=== PATIENT | female | born 1990 | race Caucasian/White ===

== ENCOUNTER → 2018-01-22 13:54 | Outpatient (CLI) | payer MEDICAID, SELFPAY ==
[2018-01-22 16:20] LABS: Pregnancy, Serum, hCG Quali. NEGATIVE Negative (0-9 Nonpreg)
== END ==
PROVIDERS: Visit Provider Obstetrics & Gynecology
DX: N91.2 Amenorrhea, unspecified (principal)
CPT/HCPCS: 36415; 84144; 84703

== ENCOUNTER → 2019-05-28 13:45 | Outpatient (CLI) | payer MEDICAID, SELFPAY ==
[2016-11-07 13:54] VITALS: BMI 21.2
[2019-05-28 16:20] LABS: hCG Titer Quant., Serum < 1 mIU/mL (1-3)
[2019-05-28 16:21] LABS: Progesterone Level 0.63 ng/mL (See Comment)
== END ==
PROVIDERS: Visit Provider Obstetrics & Gynecology
DX: Z30.014 Encounter for initial prescription of intrauterine contraceptive device (principal)
CPT/HCPCS: 36415; 84144; 84702

== ENCOUNTER → 2020-10-12 | Outpatient (CLI) | payer MEDICAID, SELFPAY ==
[2016-11-07 13:54] VITALS: BMI 21.2
[2020-10-15 20:08] LABS: Chlamydia By Nucleic Acid AMP Negative (Negative)
[2020-10-16 01:29] LABS: Gonococcus By Nucleic Acid AMP Negative (Negative)
[2020-10-16 20:07] LABS: HPV Genotype 16, Aptima Negative (Negative)
[2020-10-16 21:09] LABS: HPV APTIMA, High Risk Positive (Negative); HPV Genotype 18,45 Aptima Negative (Negative)
== END | disposition home or self-care (01) ==
LOC: LABSPEC 15:54
PROVIDERS: Visit Provider Student in an Organized Health Care Education/Training Program
DX: Z34.81 Encounter for supervision of other normal pregnancy, first trimester (principal); Z12.4 Encounter for screening for malignant neoplasm of cervix; Z11.3 Encounter for screening for infections with a predominantly sexual mode of transmission
CPT/HCPCS: 87491; 87591; 87624; 88175; G0145

== ENCOUNTER → 2020-10-20 | Outpatient (CLI) | payer MEDICAID, SELFPAY ==
[2016-11-07 13:54] VITALS: BMI 21.2
[2020-10-20 17:10] LABS: Absolute Lymphocyte Count 2.11 X10^3/uL (0.83-4.51); Absolute Neutrophil Count 8.9 X10^3/uL (2.0-7.7); Basophil# 0.03 X10^3/uL; Basophil% 0.3 % (0-1); Eosinophil# 0.06 X10^3/uL; Eosinophils% 0.5 % (0-5); Hematocrit 36.9 % (37-47); Hemoglobin 12.8 g/dL (12.0-15.0); Lymphocyte # 2.11 X10^3/ul (4.0); Lymphocyte % 17.7 % (19-41); Mean Corp Hgb Conc 34.7 g/dL (32-36); Mean Corpuscular Hgb 31.3 pg (27.0-32.0); Mean Corpuscular Volume 90.2 fL (81-99); Mean Platelet Vol. 10.6 fl (6.2-12.0); Monocyte# 0.78 X10^3/uL; Monocyte% 6.5 % (0-10); NRBC Flagged by Analyzer 0 % (0-5); Neutrophil # 8.92 X10^3/uL (2.7-7.7); Neutrophil % 74.6 % (47-70); Platelet Count 282 K/mm3 (150-450); RBC Distribution Width CV 12.3 % (11.6-14.6); RBC Distribution Width SD 40.3 fl (35.1-43.9); Red Blood Count 4.09 M/mm3 (4.2-5.4)
[2020-10-21 09:45] LABS: HIV - WCH Non-Reactive (Nonreactive); Hepatitis B Surface Antigen Non-Reactive (Nonreactive); Hepatitis C Antibody Non-Reactive (Nonreactive); Rubella IgG Reactive (Nonreactive)
[2020-10-22 01:10] LABS: Prenatal RPR NONREACTIVE (NONREACTIVE)
== END | disposition home or self-care (01) ==
PROVIDERS: Visit Provider Student in an Organized Health Care Education/Training Program
DX: Z34.81 Encounter for supervision of other normal pregnancy, first trimester (principal)
CPT/HCPCS: 36415; 85025; 86703; 86762; 86803; 87086; 87340

== ENCOUNTER → 2020-11-17 11:45 | Outpatient (CLI) | payer MEDICAID, SELFPAY ==
[2016-11-07 13:54] VITALS: BMI 21.2
[2020-11-23 15:49] LABS: CF, Screen Comment: (.)
== END ==
PROVIDERS: Visit Provider Student in an Organized Health Care Education/Training Program
DX: Z34.00 Encounter for supervision of normal first pregnancy, unspecified trimester (principal)
CPT/HCPCS: 36415; 81220

== ENCOUNTER → 2020-12-16 | Outpatient (CLI) | payer MEDICAID, SELFPAY | END | disposition home or self-care (01) | LOC: LABSPEC 15:24 | PROVIDERS: Referring Provider Student in an Organized Health Care Education/Training Program; Visit Provider Student in an Organized Health Care Education/Training Program | DX: U07.1 COVID-19 (principal) | CPT/HCPCS: 87635; C9803; U0002 ==

== ENCOUNTER → 2021-02-08 13:08 | Outpatient (CLI) | payer MEDICAID, SELFPAY ==
[2016-11-07 13:54] VITALS: BMI 21.2
[2021-02-08 13:38] LABS: Hematocrit 33.4 % (37-47); Hemoglobin 11.7 g/dL (12.0-15.0); Mean Corpuscular Hgb 32.1 pg (27.0-32.0); Mean Corpuscular Volume 91.8 fL (81-99); Platelet Count 256 K/mm3 (150-450); RBC Distribution Width CV 13.1 % (11.6-14.6); RBC Distribution Width SD 43.5 fl (35.1-43.9); Red Blood Count 3.64 M/mm3 (4.2-5.4); White Blood Count 11.5 K/mm3 (4.4-11.0)
[2021-02-08 13:47] LABS: Glucose Challenge Gest 1H 50g 115 mg/dL (70-140)
== END ==
PROVIDERS: Visit Provider Student in an Organized Health Care Education/Training Program
DX: Z34.82 Encounter for supervision of other normal pregnancy, second trimester (principal)
CPT/HCPCS: 36415; 82950; 85027

== ENCOUNTER 2021-04-30 13:40 | Outpatient (CLI) | payer MEDICAID, SELFPAY ==
[2021-04-30] VITALS (40 sets, daily range): BP systolic 104–130; BP diastolic 68–70; PULSE 79–163; TEMP 36.6–36.7; O2SAT 87–100; BMI 21.5
[2021-04-30] MEDS: Lactated Ringers 1,000 ML 999 ML IV (16:10)
[2021-04-30] MEDS: Lactated Ringers 1,000 ML 120 ML IV (17:15)
[2021-04-30 17:20] LABS: Absolute Lymphocyte Count 1.71 X10^3/uL (0.83-4.51); Basophil# 0.03 X10^3/uL; Basophil% 0.2 % (0-1); Eosinophil# 0.04 X10^3/uL; Eosinophils% 0.3 % (0-5); Hematocrit 35.1 % (37-47); Hemoglobin 12.1 g/dL (12.0-15.0); Lymphocyte # 1.71 X10^3/ul (0.83-4.51); Lymphocyte % 12.5 % (19-41); Mean Corp Hgb Conc 34.5 g/dL (32-36); Mean Corpuscular Hgb 30.7 pg (27.0-32.0); Mean Corpuscular Volume 89.1 fL (81-99); Mean Platelet Vol. 10.8 fl (6.2-12.0); Monocyte# 0.82 X10^3/uL; NRBC Flagged by Analyzer 0 % (0-5); Neutrophil % 80.3 % (47-70); Platelet Count 228 K/mm3 (150-450); RBC Distribution Width CV 12.6 % (11.6-14.6); Red Blood Count 3.94 M/mm3 (4.2-5.4); White Blood Count 13.7 K/mm3 (4.4-11.0)
[2021-04-30 17:36] LABS: ALB/GLOB Ratio 0.6 RATIO (0.9-2.4); AST(SGOT) 16 U/L (15-37); Alanine Aminotransfer ALT/SGPT 18 U/L (13-56); Albumin, Serum 2.8 g/dL (3.2-5.0); Alkaline Phosphatase 105 U/L (45-117); Anion Gap 8 (5-15); BUN 6 mg/dL (7-18); BUN/Creat Ratio 13.9 RATIO (10-20); Calcium,Total 8.6 mg/dL (8.5-10.1); Chloride 106 mmol/L (98-107); Creatinine, Serum 0.43 mg/dL (0.55-1.02); EST Glomerular Filtration Rate 182 mL/min (>60); Est Glom Filt Rate - Afr Amer 220 mL/min (>60); Globulin 4.4 g/dL (2.2-4.2); Glucose 73 mg/dL (74-106); Potassium 3.6 mmol/L (3.5-5.1); Protein, Total 7.2 g/dL (6.4-8.2); Sodium Level 137 mmol/L (136-145)
[2021-04-30 17:46] LABS: Amphetamine Urine VISTA NEGATIVE (<1000 ng/mL); Barbiturate Urine VISTA NEGATIVE (< 200 ng/mL); Benzodiazepine Urine VISTA NEGATIVE (< 200 ng/mL); Cocaine Urine VISTA NEGATIVE (< 300 ng/mL); Ecstacy Urine VISTA NEGATIVE (< 500 ng/mL); Methadone Urine VISTA NEGATIVE (< 300 ng/mL); PCP Urine VISTA NEGATIVE (< 25 ng/mL); THC Urine VISTA NEGATIVE (< 50 ng/mL); Vista UDS pH Range 6
--- NOTE | 2021-04-30 17:50 | PCM.HP.BLA ---
History and Physical Date of Admission: 04/30/21 Chief complaint: arrhythmia History present illness: 30-year-old G4, P3 at 35 weeks and 4 days with ALBA: 05/31/2021 by LMP arrived to office with cramping. Placed on NST found to have arrhythmia. BPP performed. Arrived to labor and delivery for extended monitoring found again to have what appears to be movement arrhythmia. Patient otherwise asymptomatic, cramping now improved. Denies headache, visual changes, chest pain, shortness of breath, right upper quadrant pain. Obstetric history: G1: 37-week primary section for oligohydramnios and nonreassuring heart tones male 03/04/2011 G2: 36-week male 10/18/2015 G3: 33-week female 11/24/2016 G4: Current Past medical history: None Medications: vitamin Past surgical history: section, hymenectomy Allergies: No known drug allergies Social history: 1 pack/day smoker, no alcohol or drug use Family history: Denies history DVT or PE Review of systems: Besides above pertinent positives a full review of systems was performed and found to be negative Physical exam: Vitals: Pulse 95 temp 98 General: Normal-appearing no acute distress HEENT: Normocephalic atraumatic no cervical adenopathy Cardiac/respiratory: No use of accessory muscles, nonlabored breathing Abdomen: Soft, nontender, gravid Pelvic exam: Cervical exam 1/50/-3 Extremities: No peripheral edema normal peripheral pulses Psych: Normal affect normal demeanor nonpressured speech Bedside ultrasound: During audible arrhythmia: External monitor ultrasound shows atrial with arrhythmia and ventricle with persistent baseline, no signs of bradycardia Assessment plan: 30-year-old at 35 weeks and 4 days with arrhythmia. Bedside ultrasound performed and appears to show signs of arrhythmia PACs but this cannot be fully confirmed with this evaluation. Discussed case with Dr. Ester Nickerson [facility], to give Celestone now and transport for echo at [facility]. Overall heart rate tracing with steady baseline which shows no true deceleration but during arrhythmia monitor picks up abnormal reading, this is just greater than 50% of the time. Overall heart tones with moderate variability and no true decelerations, positive accelerations. Overall this is reassuring. Per discussion with Dr. Norman we will continue to monitor until transport, echo likely to be on Monday. Transport team called, will transfer now
[2021-04-30] MEDS: Betamethasone/Betamethasone 30 MG/5 ML Vial 12 MG IM (17:57)
== END 2021-04-30 19:30 | disposition short-term general hospital (02) ==
LOC: WPOUT 14:49 → WP 14:50
PROVIDERS: Obstetrics & Gynecology; Visit Provider Obstetrics & Gynecology
DX: O36.8330 Maternal care for abnormalities of the fetal heart rate or rhythm, third trimester, not applicable or unspecified (principal); O34.219 Maternal care for unspecified type scar from previous cesarean delivery; O99.333 Smoking (tobacco) complicating pregnancy, third trimester; F17.210 Nicotine dependence, cigarettes, uncomplicated; Z3A.35 35 weeks gestation of pregnancy
CPT/HCPCS: 96360; 96361 ×2; 96372; 59025; 59050; 80053; 80307; 85025; 86850; 86900; 86901; 87081; 96374; 99218; J7120; G0378; J0702

== ENCOUNTER → 2022-02-10 | Outpatient (CLI) | payer MEDICAID, SELFPAY ==
[2022-02-10 11:57] LABS: Absolute Lymphocyte Count 1.87 X10^3/uL (0.83-4.51); Absolute Neutrophil Count 6.2 X10^3/uL (2.0-7.7); Basophil# 0.02 X10^3/uL; Basophil% 0.2 % (0-1); Eosinophil# 0.05 X10^3/uL; Eosinophils% 0.6 % (0-5); Hematocrit 36.9 % (37-47); Hemoglobin 12.6 g/dL (12.0-15.0); Lymphocyte # 1.87 X10^3/ul (0.83-4.51); Lymphocyte % 21.3 % (19-41); Mean Corp Hgb Conc 34.1 g/dL (32-36); Mean Corpuscular Hgb 30.7 pg (27.0-32.0); Mean Corpuscular Volume 89.8 fL (81-99); Mean Platelet Vol. 10.4 fl (6.2-12.0); Monocyte# 0.61 X10^3/uL; NRBC Flagged by Analyzer 0 % (0-5); Neutrophil # 6.17 X10^3/uL (2.7-7.7); Neutrophil % 70.4 % (47-70); Platelet Count 259 K/mm3 (150-450); RBC Distribution Width CV 12.3 % (11.6-14.6); RBC Distribution Width SD 40.2 fl (35.1-43.9); Red Blood Count 4.11 M/mm3 (4.2-5.4); White Blood Count 8.8 K/mm3 (4.4-11.0)
[2022-02-10 12:48] LABS: HIV - WCH Non-Reactive (Nonreactive); Hepatitis B Surface Antigen Non-Reactive (Nonreactive); Hepatitis C Antibody Non-Reactive (Nonreactive); Rubella IgG Reactive (Nonreactive); Syphilis Antibodies Non-reactive
[2022-02-14 11:26] LABS: Chlamydia By Nucleic Acid AMP Negative (Negative)
[2022-02-14 20:07] LABS: Gonococcus By Nucleic Acid AMP Negative (Negative)
[2022-02-16 10:17] LABS: HPV APTIMA, High Risk Positive (Negative)
== END | disposition home or self-care (01) ==
PROVIDERS: Visit Provider Obstetrics & Gynecology
DX: Z34.81 Encounter for supervision of other normal pregnancy, first trimester (principal); Z12.4 Encounter for screening for malignant neoplasm of cervix; Z11.3 Encounter for screening for infections with a predominantly sexual mode of transmission
CPT/HCPCS: 36415; 85025; 86703; 86762; 86780; 86803; 87086; 87088; 87340; 87491; 87591; 87624; 88175; G0145

== ENCOUNTER → 2022-03-21 | Outpatient (CLI) | payer MEDICAID, SELFPAY | END | disposition home or self-care (01) | PROVIDERS: Visit Provider Obstetrics & Gynecology | DX: Z36.89 Encounter for other specified antenatal screening (principal) ==

== ENCOUNTER → 2022-03-22 | Outpatient (CLI) | payer MEDICAID, SELFPAY ==
--- NOTE | 2022-03-22 | IMM_PTH ---
PATIENT: JYOTHI ALVES LOC: [facility] U#:[id number] AGE/SX: 31/F ROOM: RE03/22/[address]: Dr. Ajay Carty MD : 1990 BED: DIS: 03/22/2022 SPEC #: [id number] RECD: 03/23/22 12:09 STATUS: NIKKY REQ #: [id number] SOCORRO: 03/22/22 00:[address]: Ajay Carty DEPT: IMMUNOHISTOCHEMISTRY RECD BY: Dilcia Mccurdy ENTERED: 03/23/22 12:10 SP TYPE: IMMUNO OTHR DR: No Primary Care Phys Tissues: Uterine cervix, NOS Procedures: p16 (initial) KI-67 (add) PHYSICIAN & INSTITUTION [place] [id number] SPECIMEN INFORMATION: Tissue Source: Cervix at 6 & 12 o?clock Clinical Info: ASCUS HPV positive Specimen Number: [id number] CPT code: 13307, 27012 METHODOLOGY: Deparaffinized sections of prefer/formalin-fixed tissue or PAP/DQ stained slides are incubated with monoclonal/polyclonal antibodies/oligonucleotide probes. Localization is made via biotin free immunoperoxidase method. Appropriate controls are performed and reacted as expected. Results on target cell population are indicated in the following table: RESULTS: ANTIBODY / CLONE RESULT P16 (E6H4) positive, focal, patchy Ki-67 (30-9) negative These tests were developed and their performance characteristics determined by [facility]. They may not have been cleared or approved by the U.S. Food and Drug Administration. The FDA has determined that such clearance or approval is not necessary. The above immunohistochemical/dualISH markers are ordered and reviewed by the Pathologist. INTERPRETATION: Cervix at 6 & 12 o?clock, biopsy: Focal HPV change present. AM:roya 03/24/2022
--- NOTE | 2022-03-22 11:15 | CER_PTH ---
PATIENT: JYOTHI ALVES LOC: [facility] U#:[id number] AGE/SX: 31/F ROOM: RE03/22/[address]: Dr. Ajay Carty MD : 1990 BED: DIS: 03/22/2022 SPEC #: [id number] RECD: 03/22/22 13:15 STATUS: NIKKY REFranck #: [id number] SOCORRO: 03/22/22 11:[address]: Ajay Carty DEPT: SURGICAL PATHOLOGY RECD BY: Yenny Cortes ENTERED: 03/22/22 13:16 SP TYPE: CERV OT DR: No Primary Care Phys Tissues: Uterine cervix, NOS Procedures: Surgery Specimen Level IV HEADER OPERATION: Colposcopy PRE-OP DIAGNOSIS: ASCUS HPV positive TISSUE SUBMITTED: Cervical biopsy 6 & 12 o?clock MICROSCOPIC DIAGNOSIS Cervix at 6 and 12 o?clock, biopsy: Focal HPV change present. See comment. AM:roya 03/23/2022 COMMENT Results from immunohistochemistry ([id number]) for surrogate HPV marker (p16) will be reported separately. MICROSCOPIC DESCRIPTION Slides are reviewed. GROSS DESCRIPTION Received is one container labeled with the patient's name and not further designated. The specimen consists of two irregular fragments of light valverde soft tissue that in aggregate measure 1 x 0.5 x 0.1 cm. The specimen is totally submitted in one cassette. / AM:roya 03/22/2022 TC:2 CPT: 82261
== END | disposition home or self-care (01) ==
LOC: LABSPEC 11:52
PROVIDERS: Visit Provider Obstetrics & Gynecology
DX: R87.610 Atypical squamous cells of undetermined significance on cytologic smear of cervix (ASC-US) (principal); R87.810 Cervical high risk human papillomavirus (HPV) DNA test positive
CPT/HCPCS: 88305; 88341; 88342

== ENCOUNTER → 2022-07-13 | Outpatient (CLI) | payer MEDICAID, SELFPAY ==
[2022-07-13 11:28] LABS: Absolute Lymphocyte Count 1.68 X10^3/uL (0.83-4.51); Absolute Neutrophil Count 8.4 X10^3/uL (2.0-7.7); Basophil# 0.03 X10^3/uL; Basophil% 0.3 % (0-1); Eosinophil# 0.06 X10^3/uL; Eosinophils% 0.6 % (0-5); Hemoglobin 11.7 g/dL (12.0-15.0); Lymphocyte # 1.68 X10^3/ul (0.83-4.51); Lymphocyte % 15.8 % (19-41); Mean Corp Hgb Conc 35.5 g/dL (32-36); Mean Corpuscular Hgb 31.5 pg (27.0-32.0); Mean Corpuscular Volume 88.7 fL (81-99); Mean Platelet Vol. 9.6 fl (6.2-12.0); Monocyte# 0.41 X10^3/uL; Monocyte% 3.9 % (0-10); NRBC Flagged by Analyzer 0 % (0-5); Neutrophil # 8.38 X10^3/uL (2.7-7.7); Neutrophil % 78.8 % (47-70); Platelet Count 273 K/mm3 (150-450); RBC Distribution Width CV 12.7 % (11.6-14.6); RBC Distribution Width SD 41.3 fl (35.1-43.9); Red Blood Count 3.72 M/mm3 (4.2-5.4); White Blood Count 10.6 K/mm3 (4.4-11.0)
[2022-07-13 11:48] LABS: Glucose Challenge Gest 1H 50g 138 mg/dL (70-140)
== END | disposition home or self-care (01) ==
LOC: LABSPEC 11:08
PROVIDERS: Visit Provider Obstetrics & Gynecology
DX: Z34.83 Encounter for supervision of other normal pregnancy, third trimester (principal)
CPT/HCPCS: 36415; 82950; 85025

== ENCOUNTER 2022-07-29 07:45 | Outpatient (CLI) | payer MEDICAID, SELFPAY ==
[2022-07-29 08:19] VITALS: BMI 22.1
[2022-07-29 08:24] VITALS: BP 92/54; PULSE 90; TEMP 36.3; O2SAT 98
[2022-07-29 08:47] LABS: Color, Urine Yellow (Yellow); Glucose, Dipstick 250 mg/dl (Normal); Ketone-Dipstick 50 mg/dl (Negative); Leukocyte Esterase-Dipstick 100 /ul (Negative); Nitrite-Dipstick Positive (Negative); Occult Blood-Urine 10 /ul (Negative); Protein-Dipstick 30 mg/dl (Negative); Urine Clarity Sl. Cloudy (Clear); Urine Urobilinogen 1 mg/dl (Normal)
[2022-07-29 08:48] LABS: Urine Bilirubin Dipstick 1 mg/dL (Negative)
[2022-07-29] MEDS: Ringers, Lactated 1,000 ML IV.SOLN. 1000 ML IV (09:01)
--- NOTE | 2022-07-29 09:02 | OB.TRI.NOTE ---
HPI - General General Date of Admission: 07/29/22 HPI Narrative JYOTHI ALVES, is a 31 F who presents with back pain PFSH PFSH Home Medications Fa 1 tablet OTHER DAILY 04/30/21 [History Last Taken Unknown] Allergy/AdvReac Type Severity Reaction Status Date / Time No Known Allergies Allergy Verified 04/30/21 16:11 Social History Smoking Status: Former smoker History Elective abortions Hx Para 1 Spontaneous abortions Hx # Term Pregnancies Ectopic pregnancies Hx # Pregnancies Multiple births # of living children Physical Exam Const alert, oriented x3, no apparent distress, average body habitus, no limitations, healthy appearing and well nourished HEENT moist oral mucous membranes Eyes PERRL Neck full ROM Resp normal respiratory effort, no retractions and no use of accessory muscles GI GI Narrative: Soft, nontender, gravid Narrative: Cervical exam: 260/-3 Back/Spine no CVA tenderness Extremity normal to inspection, full ROM and no clubbing, cyanosis or edema Neuro moves all extremities and no focal motor deficits Psych mental status grossly normal, affect normal, speech normal and activity/motor behavior normal NST FHR Rate Baby A Baseline: 140 Variability:: Moderate Accelerations:: 15 x 15 Decelerations:: None NST Reactive:: Yes Uterine Activity:: Every 5 to 10 minutes Assessment & Plan (1) : PLAN: Patient seen and examined. Back pain that started last night, persistent. Denies fevers, chills. Negative CVA tenderness. Vital signs stable afebrile. Urine positive for urinary tract infection, no signs of pyelonephritis. For 1 g Rocephin IV. 1 L LR bolus. Will send Rx for Macrobid for home-going. Cervix with no signs of labor
[2022-07-29] MEDS: Ceftriaxone 1 GM/50 ML BAG IV (09:39)
[2022-07-29] MEDS: 0.9% Saline Lock 10 ML Syringe IV (09:40)
== END 2022-07-29 11:45 | disposition home or self-care (01) ==
LOC: WPOUT 08:14 → WP 08:15
PROVIDERS: Referring Provider Obstetrics & Gynecology; Visit Provider Obstetrics & Gynecology
DX: O23.40 Unspecified infection of urinary tract in pregnancy, unspecified trimester (principal); Z87.891 Personal history of nicotine dependence
CPT/HCPCS: 96365; 59025; 81002; 87086; 87088; J7120; A4216

== ENCOUNTER → 2022-08-24 | Outpatient (CLI) | payer MEDICAID, SELFPAY | END | disposition home or self-care (01) | LOC: LABSPEC 11:56 | PROVIDERS: Visit Provider Obstetrics & Gynecology | DX: R35.0 Frequency of micturition (principal) | CPT/HCPCS: 87086; 87088; 87186 ==

== ENCOUNTER → 2022-09-07 | Outpatient (CLI) | payer MEDICAID, SELFPAY ==
[2022-09-07 11:25] LABS: Hematocrit 32.2 % (37-47); Hemoglobin 10.5 g/dL (12.0-15.0); Mean Corp Hgb Conc 32.6 g/dL (32-36); Mean Corpuscular Hgb 28.8 pg (27.0-32.0); Mean Corpuscular Volume 88.2 fL (81-99); Mean Platelet Vol. 9.5 fl (6.2-12.0); Platelet Count 253 K/mm3 (150-450); RBC Distribution Width CV 13.6 % (11.6-14.6); Red Blood Count 3.65 M/mm3 (4.2-5.4); White Blood Count 9.5 K/mm3 (4.4-11.0)
[2022-09-07 12:15] LABS: Syphilis Antibodies Non-reactive
== END | disposition home or self-care (01) ==
LOC: WOBLAB 11:04
PROVIDERS: Visit Provider Obstetrics & Gynecology
DX: Z34.83 Encounter for supervision of other normal pregnancy, third trimester (principal); Z36.85 Encounter for antenatal screening for Streptococcus B
CPT/HCPCS: 36415; 87081; 85027; 86780

== ENCOUNTER 2022-09-10 06:54 | Inpatient (IN) | payer MEDICAID, SELFPAY ==
[2022-09-10] VITALS (39 sets, daily range): BP systolic 96–176; BP diastolic 56–103; PULSE 66–100; RESP 16–17; TEMP 36.4–37.2; O2SAT 92–100; BMI 20.6
[2022-09-10] MEDS: Lactated Ringers 1,000 ML 50 ML IV (07:00)
[2022-09-10] MEDS: LACTATED RINGERS 500 ML 999 ML IV (07:01)
--- NOTE | 2022-09-10 07:14 | PCM.HP.BLA ---
History and Physical Date of Admission: 09/10/22 Chief complaint: Contractions History present illness: 31-year-old G5, P4 at 36 weeks and 6 days with ALBA 10/02/2022 arrives with contractions. Denies headache, visual changes, chest pain, shortness of breath, nausea vomit, right upper quadrant pain. Patient states good movement. complicated by history of section Obstetric history: G1: 39-week primary transverse section male 6 pounds 6 ounces G2: 35-week male 5 pounds 6 ounces G3: 35-week female 4 pounds 10 ounces G4: 35-week female 6 pounds G5: Current Past medical history: None Medications: vitamin Allergies: No known drug allergies Past surgical history: section Social history: Former smoker, denies alcohol or drug use Family history: Denies history DVT or PE Review of systems: Besides above pertinent positives a full review of systems was performed and found to be negative Physical exam: Vitals: Pulse 78 SPO2 98% on room air General: Uncomfortable with contractions HEENT: Normocephalic/atraumatic no cervical lymphadenopathy Cardiac/respiratory: No use of accessory muscles, nonlabored breathing Abdomen: Soft, nontender, gravid Extremities: No peripheral edema normal peripheral pulses Psych: Normal affect normal demeanor nonpressured speech Labs: Pending Assessment plan: 31-year-old G5, P4 at 36 weeks and 6 days called by nursing and found to be 8 cm. Admit labor and delivery. CEFM. GBS negative. Advanced dilation and likely for quick delivery, poor candidate for Celestone being nearly term.
[2022-09-10 07:17] LABS: Absolute Lymphocyte Count 1.73 X10^3/uL (0.83-4.51); Absolute Neutrophil Count 14.4 X10^3/uL (2.0-7.7); Basophil# 0.04 X10^3/uL; Basophil% 0.2 % (0-1); Eosinophil# 0.02 X10^3/uL; Eosinophils% 0.1 % (0-5); Hematocrit 32.8 % (37-47); Hemoglobin 11.4 g/dL (12.0-15.0); Lymphocyte # 1.73 X10^3/ul (0.83-4.51); Lymphocyte % 10.1 % (19-41); Mean Corp Hgb Conc 34.8 g/dL (32-36); Mean Corpuscular Hgb 29.6 pg (27.0-32.0); Mean Corpuscular Volume 85.2 fL (81-99); Mean Platelet Vol. 9.7 fl (6.2-12.0); Monocyte% 4.1 % (0-10); NRBC Flagged by Analyzer 0 % (0-5); Neutrophil # 14.41 X10^3/uL (2.7-7.7); Neutrophil % 84.6 % (47-70); Platelet Count 270 K/mm3 (150-450); RBC Distribution Width CV 13.6 % (11.6-14.6); RBC Distribution Width SD 41.7 fl (35.1-43.9); Red Blood Count 3.85 M/mm3 (4.2-5.4); White Blood Count 17.1 K/mm3 (4.4-11.0)
[2022-09-10] MEDS: Oxytocin 10 UNITS/ML Vial IM (08:45)
[2022-09-10] MEDS: Methylergonovine 0.2 MG/ML Ampul IM (08:49)
--- NOTE | 2022-09-10 08:53 | EX.PCM.OBRPT ---
Vaginal Delivery Findings Description of Procedure: Patient found to be complete +1 station, AROM clear fluid. Normal spontaneous vaginal delivery of a viable male , vertex DEBORAH. Head and shoulders delivered with ease. Cord clamped and cut. Baby handed off to patient. Placenta delivered via cord traction and fundal massage. IM Pitocin given to initiate uterine contractions. Prophylactic IM Methergine given with quick and second stage of labor. No lacerations noted. EBL 250 cc Apgars 8/9
[2022-09-10] MEDS: Ibuprofen 600 MG Tablet PO ×2 (10:39→20:01)
[2022-09-11 03:30] VITALS: BP 94/64; PULSE 65; RESP 13; TEMP 36.8
[2022-09-11] MEDS: Ibuprofen 600 MG Tablet PO ×2 (04:37→14:03)
--- NOTE | 2022-09-11 08:42 | DCINST_ITS ---
Discharge Instructions Diet Discharge Diet: No restrictions Activity Discharge Activity: Return to Normal Activity, May Drive and May Shower May resume sexual activity in: 4-6 weeks Weight Bearing Status: Weight bearing as tolerated Dressing / Incision Call your doctor if your incision/area has: Continuous Slow Oozing and Foul Smelling Discharge Call your doctor if you observe: Fever of 101 or Higher, Shortness of breath and Chest pain Follow Up Care Please Follow Up With: Ajay Carty MD When: 4 to 6 weeks Test Results: Test results from this visit will be discussed in further detail at your follow- up appointment, if applicable. Discharge Plan Admission Admit Date/Time: 09/10/22 06:54 Attending Provider: Ajay Carty Primary Care Provider: Care Physician,Melody Primary Discharge Orders/Prescriptions Prescriptions: No Action Fa 1 tablet OTHER DAILY Referrals / Follow Up: Care Physician,No Primary [Primary Care Provider] - Disposition Discharge Orders: Discharge Patient (Routine); Ordered 09/11/22 Ordered By: Dr. Ajay Carty
--- NOTE | 2022-09-11 08:42 | PN.OBGYN_ITS ---
Subjective Subjective No overnight complaints Objective Data Objective Data Vital Signs: Vital Signs Temp Pulse Resp BP Pulse Ox O2 Del Method 98.3 F 65 13 94/64 100 Room Air 09/11/22 03:30 09/11/22 03:30 09/11/22 03:30 09/11/22 03:30 09/10/22 09:01 09/10/22 15:47 Oxygen Delivery Method Room Air Weight: 120 lb 6.4 oz Body Mass Index (BMI) 20.6 Intake & Output: Intake and Output for Last 24 Hours 09/09/22 09/10/22 09/11/22 23:59 23:59 23:59 Intake Total 750 / 750 Output Total 300 / 300 Balance 450 / 450 Lab / Micro Data Result Diagrams: 09/10/22 07:00 Physical Exam Const alert, oriented x3, no apparent distress, average body habitus, healthy appearing and well nourished HEENT normocephalic and moist oral mucous membranes Eyes PERRL Neck full ROM Resp normal respiratory effort, no retractions and no use of accessory muscles GI GI Narrative: Soft, nontender, uterus firm and below umbilicus Extremity normal to inspection, full ROM and no clubbing, cyanosis or edema Neuro moves all extremities and no focal motor deficits Psych mental status grossly normal, affect normal, speech normal and activity/motor be havior normal Assessment & Plan (1) Vaginal delivery: PLAN: day 1 status post at 36 weeks with labor/ delivery. Formula feeding. Pain well controlled. Baby was handed with extra digit, discussed with resident caregiver. Okay to discharge home today if okay with resident caregiver
[2022-09-11 13:51] VITALS: BP 92/59; PULSE 81; RESP 18; TEMP 36.8
[2022-09-11] MEDS: FLU VACC QS2022-23(6MOS UP)/PF 60 MCG/0.5 ML SYRINGE IM (14:04)
== END 2022-09-11 18:50 | disposition home or self-care (01) | DRG 560 ==
LOC: WPOUT 06:57 → WP 06:57 → WPOUT 06:57 → WP 06:57
PROVIDERS: Admitting Provider Obstetrics & Gynecology; Visit Provider Obstetrics & Gynecology
DX: O34.219 Maternal care for unspecified type scar from previous cesarean delivery (principal); Z37.0 Single live birth; O60.14X0 Preterm labor third trimester with preterm delivery third trimester, not applicable or unspecified; Z23 Encounter for immunization; Z3A.36 36 weeks gestation of pregnancy; Z87.891 Personal history of nicotine dependence
CPT/HCPCS: 36415; 59025; 59050; 85025; 85027; 86780; 86850; 86900; 86901; 87081; 99221; J7120; 90686; G0378

== ENCOUNTER → 2022-11-28 | Outpatient (CLI) | payer MEDICAID, SELFPAY ==
[2022-11-30 15:05] LABS: Hemoglobin 12.3 g/dL (12.0-15.0); Mean Corp Hgb Conc 33.2 g/dL (32-36); Mean Corpuscular Hgb 28.7 pg (27.0-32.0); Mean Corpuscular Volume 86.2 fL (81-99); Mean Platelet Vol. 10.2 fl (6.2-12.0); Platelet Count 320 K/mm3 (150-450); RBC Distribution Width CV 13.2 % (11.6-14.6); RBC Distribution Width SD 41.2 fl (35.1-43.9); Red Blood Count 4.29 M/mm3 (4.2-5.4); White Blood Count 9.1 K/mm3 (4.4-11.0)
[2022-12-05 06:35] VITALS: BP 96/71; PULSE 82; RESP 16; TEMP 37.3; O2SAT 98; BMI 20.1
[2022-12-05] MEDS: Lactated Ringers 1,000 ML 120 ML IV (06:35)
[2022-12-05 07:01] LABS: Internal QC Validated? YES +Cl - CLEAR BKGD
[2022-12-05 07:04] LABS: Pregnancy, Urine Positive Negative
--- NOTE | 2022-12-05 07:04 | HP.PCM.OB_ITS ---
History and Physical Date of Admission: 12/05/22 Chief complaint: Desires permanent sterilization History present illness: 32-year-old arrives for scheduled laparoscopic tubal ligation. No medical changes since last seen. All questions answered and consent signed. Obstetric history: history of 1 section and 4 vaginal deliveries Past medical history: None Medications: None Allergies: No known drug allergies Past surgical history: section Social history: Former smoker, denies alcohol or drug use Family history: Denies history DVT or PE Review of systems: Besides above pertinent positives a full review of systems was performed and found to be negative Physical exam: Vitals: Blood pressure 96/71 pulse 82 respiratory rate 16 temperature 99.1 ?F SPO2 98% on room air General: Normal-appearing no acute distress HEENT: Normocephalic/atraumatic no cervical lymphadenopathy Cardiac/respiratory: No use accessory muscles, nonlabored breathing Abdomen: Soft, nontender, nondistended Extremities: No peripheral edema normal peripheral pulses Psych: Normal affect, demeanor nonpressured speech Assessment and plan: 32-year-old arrives for laparoscopic tubal ligation but urine test and hCG positive for . Patient did have unprotected intercourse LMP beginning of November. Educated patient on findings and now . Patient states understanding, surgery to be canceled. Patient to call office to follow- up for . All questions answered by partner and patient
[2022-12-05 07:54] LABS: hCG Titer Quant., Serum 578 mIU/mL (1-3)
--- NOTE | 2022-12-05 08:00 | SUR.PREOP ---
PT BEING CANCELLED DUE TO A POSITIVE URINE TEST. DR. HARDIN HAD A SERUM HCG ELLE WHICH WAS ALSO POSITIVE, SPOKE TO PT
== END | disposition home or self-care (01) ==
LOC: SDC 12-05 05:52 → AC 12-05 05:59 → PAT 12-20 10:32
PROVIDERS: Anesthesiology; Referring Provider Obstetrics & Gynecology; Visit Provider Obstetrics & Gynecology
DX: Z01.812 Encounter for preprocedural laboratory examination (principal)
CPT/HCPCS: J7120; 36415; 81025; 84702; 85027; 86850; 86900; 86901

== ENCOUNTER → 2022-12-15 | Outpatient (CLI) | payer MEDICAID, SELFPAY ==
[2022-12-15 12:03] LABS: Absolute Lymphocyte Count 2.42 X10^3/uL (0.83-4.51); Absolute Neutrophil Count 6.5 X10^3/uL (2.0-7.7); Basophil# 0.07 X10^3/uL; Basophil% 0.7 % (0-1); Eosinophil# 0.06 X10^3/uL; Eosinophils% 0.6 % (0-5); Hematocrit 35.7 % (37-47); Hemoglobin 12.1 g/dL (12.0-15.0); Lymphocyte # 2.42 X10^3/ul (0.83-4.51); Lymphocyte % 24.9 % (19-41); Mean Corp Hgb Conc 33.9 g/dL (32-36); Mean Corpuscular Hgb 29.7 pg (27.0-32.0); Mean Corpuscular Volume 87.5 fL (81-99); Mean Platelet Vol. 9.9 fl (6.2-12.0); Monocyte# 0.63 X10^3/uL; Monocyte% 6.5 % (0-10); NRBC Flagged by Analyzer 0 % (0-5); Platelet Count 290 K/mm3 (150-450); RBC Distribution Width CV 13.1 % (11.6-14.6); RBC Distribution Width SD 41.7 fl (35.1-43.9); Red Blood Count 4.08 M/mm3 (4.2-5.4); White Blood Count 9.7 K/mm3 (4.4-11.0)
[2022-12-15 13:20] LABS: HIV - WCH Non-Reactive (Nonreactive); Hepatitis B Surface Antigen Non-Reactive (Nonreactive); Hepatitis C Antibody Non-Reactive (Nonreactive); Rubella IgG Reactive (Nonreactive); Syphilis Antibodies Non-reactive
[2022-12-16 10:48] LABS: V-Zoster IgG (Immunity) 401 index (Immune >165)
== END | disposition home or self-care (01) ==
LOC: WOBLAB 11:40
PROVIDERS: Visit Provider Obstetrics & Gynecology
DX: Z34.81 Encounter for supervision of other normal pregnancy, first trimester (principal)
CPT/HCPCS: 36415; 85025; 86703; 86762; 86780; 86787; 86803; 87077; 87086; 87088; 87186; 87340

== ENCOUNTER → 2023-03-09 | Outpatient (CLI) | payer MEDICAID, SELFPAY ==
[2023-03-14 21:07] LABS: HPV APTIMA, High Risk Positive (Negative); HPV Genotype 16, Aptima Negative (Negative); HPV Genotype 18,45 Aptima Negative (Negative)
== END | disposition home or self-care (01) ==
LOC: LABSPEC 13:49
PROVIDERS: Visit Provider Obstetrics & Gynecology
DX: Z12.4 Encounter for screening for malignant neoplasm of cervix (principal)
CPT/HCPCS: 87624; 88175; G0145

== ENCOUNTER → 2023-04-27 | Outpatient (CLI) | payer MEDICAID, SELFPAY ==
[2023-04-27 14:37] LABS: Absolute Lymphocyte Count 1.74 X10^3/uL (0.83-4.51); Absolute Neutrophil Count 8.7 X10^3/uL (2.0-7.7); Basophil# 0.02 X10^3/uL; Basophil% 0.2 % (0-1); Eosinophil# 0.04 X10^3/uL; Eosinophils% 0.4 % (0-5); Hematocrit 30.3 % (37-47); Hemoglobin 10.8 g/dL (12.0-15.0); Lymphocyte # 1.74 X10^3/ul (0.83-4.51); Lymphocyte % 15.8 % (19-41); Mean Corp Hgb Conc 35.6 g/dL (32-36); Mean Corpuscular Hgb 32.1 pg (27.0-32.0); Mean Corpuscular Volume 90.2 fL (81-99); Mean Platelet Vol. 10.2 fl (6.2-12.0); Monocyte# 0.43 X10^3/uL; Monocyte% 3.9 % (0-10); NRBC Flagged by Analyzer 0 % (0-5); Neutrophil # 8.74 X10^3/uL (2.7-7.7); Neutrophil % 79.4 % (47-70); Platelet Count 251 K/mm3 (150-450); RBC Distribution Width CV 13.2 % (11.6-14.6); RBC Distribution Width SD 43.1 fl (35.1-43.9); Red Blood Count 3.36 M/mm3 (4.2-5.4)
[2023-04-27 14:40] LABS: Glucose Challenge Gest 1H 50g 108 mg/dL (70-140)
[2023-04-27 15:04] LABS: Syphilis Antibodies Non-reactive
== END | disposition home or self-care (01) ==
LOC: WOBLAB 13:29
PROVIDERS: Visit Provider Obstetrics & Gynecology
DX: Z34.82 Encounter for supervision of other normal pregnancy, second trimester (principal)
CPT/HCPCS: 36415; 82950; 85025; 86780

== ENCOUNTER 2023-06-21 23:00 | Outpatient (CLI) | payer MEDICAID, SELFPAY ==
[2023-06-21 23:17] VITALS: PULSE 65; O2SAT 98
[2023-06-21 23:18] VITALS: BP 96/63; PULSE 75
[2023-06-21 23:48] LABS: Color, Urine Yellow (Yellow); Glucose, Dipstick Normal (Normal); Ketone-Dipstick Negative (Negative); Leukocyte Esterase-Dipstick 500 /ul (Negative); Nitrite-Dipstick Positive (Negative); Occult Blood-Urine 50 /ul (Negative); Protein-Dipstick 30 mg/dl (Negative); Specific Gravity, Urine 1.025 (1.002-1.030); Urine Bilirubin Dipstick Negative (Negative); Urine Clarity Cloudy (Clear); Urine Urobilinogen 1 mg/dl (Normal)
[2023-06-22] MEDS: Lactated Ringers 1,000 ML 999 ML IV
[2023-06-22 00:14] VITALS: BMI 21.9
[2023-06-22] MEDS: Nitrofurantoin Macrocrystals 100 MG Capsule PO (00:39)
--- NOTE | 2023-06-22 05:33 | OB.TRI.NOTE ---
HPI - General HPI Narrative JYOTHI ALVES, is a 32 F at 33 weeks who presents to triage with back ache. Initially rated pain 10/10 but stated since arrival, the pain has decreased to 6/10. Stated history of UTI around 1 month ago and finished antibiotics. Denies any cramping, loss of fluid or vaginal bleeding. Positive movement. PFSH PFSH Medical History (Updated 06/22/23 @ 05:48 by Cassy Fuller CNM) Former smoker History of pre-term labor Pre-eclampsia Home Medications Fa 1 tablet OTHER DAILY 04/30/21 [History Last Taken 06/21/23 08:00 1] progesterone micronized 200 mg capsule mg vaginal .hs 06/21/23 [History Last Taken 06/21/23 20:00 200 mg] nitrofurantoin monohydrate/macrocrystals 100 mg capsule (Macrobid) 100 mg PO BID #14 CAPSULES 06/22/23 [Rx Last Taken Unknown] Allergy/AdvReac Type Severity Reaction Status Date / Time No Known Allergies Allergy Verified 06/21/23 23:29 Surgical History (Updated 06/22/23 @ 05:43 by Cassy Fuller CNM) Previous section Social History Smoking Status: Former smoker History Elective abortions Hx Para 4 Spontaneous abortions Hx # Term Pregnancies Ectopic pregnancies Hx # Pregnancies Multiple births # of living children ROS Eyes Eyes: Denies blurry vision Cardiovascular Cardiovascular: Reports none; Denies chest pain at rest, chest pain with activity or dizziness Respiratory/Chest Respiratory/Chest: Denies cough or dyspnea Gastrointestinal Gastrointestinal: Reports none and other; Denies diarrhea or vomiting Genitourinary Genitourinary: Denies dysuria Musculoskeletal Musculoskeletal: Reports none Integumentary Integumentary: Reports none; Denies rash Neurologic Neurologic: Denies dizziness, headache(s) or other visual disturbances Psychiatric Psychiatric: Reports none Physical Exam Const alert and no apparent distress General Appearance: cooperative Orientation / Consciousness: awake Exam Limitations: no limitations HEENT normocephalic Eyes General Eye: normal appearance of both eyes Neck full ROM Chest inspection of chest normal Resp normal respiratory effort and normal air movement Effort and Inspection: symmetric chest movement Auscultation: clear to auscultation bilaterally Cardio regular rate GI soft to palpation, non-tender and non-distended Inspection: and other Back/Spine normal ROM Extremity full ROM, normal capillary refill and no calf tenderness Skin no rashes or lesions noted Neuro oriented x3 and CN's II-XII intact bilaterally Psych mental status grossly normal NST FHR Rate Baby A Baseline: 140 Variability:: Moderate Accelerations:: 15 x 15 Decelerations:: None NST Reactive:: Yes FHR Category:: Category I Uterine Activity:: irregular- patient does not feel Assessment & Plan (1) 33 weeks gestation of : (2) Back pain affecting : (3) Previous delivery, antepartum: (4) Hx successful (vaginal after ), currently : (5) Grand multipara: (6) History of delivery: PLAN: Plan Start IV and run 1000 ml bolus UA- positive for Nitrates, occult blood, leukocyte est, and protein Send urine for culture Start Macrobid 100 mg PO BID x 7 days CE- closed / thick / high D/C home with follow up in office this week
== END 2023-06-22 01:30 | disposition home or self-care (01) ==
LOC: WPOUT 23:28 → WP 23:28
PROVIDERS: Referring Provider Advanced Practice Midwife; Visit Provider Advanced Practice Midwife
DX: O99.891 Other specified diseases and conditions complicating pregnancy (principal); M54.9 Dorsalgia, unspecified; Z3A.33 33 weeks gestation of pregnancy; O09.43 Supervision of pregnancy with grand multiparity, third trimester; O34.219 Maternal care for unspecified type scar from previous cesarean delivery; Z87.891 Personal history of nicotine dependence; Z87.59 Personal history of other complications of pregnancy, childbirth and the puerperium
CPT/HCPCS: 96360; 59025; 59050; 81002; 87077; 87086; 87088; 87186; 99221; J7120; G0378

== ENCOUNTER 2023-07-22 23:00 | Inpatient (IN) | payer MEDICAID, SELFPAY ==
--- NOTE | 2023-07-21 | PLAC_PTH ---
PATIENT: JYOTHI ALVES LOC: [facility] U#:[id number] AGE/SX: 32/F ROOM: WP003 RE07/22/[address]: Dr. Melody Mathews DO : 1990 BED: 1 DIS: 07/24/2023 SPEC #: [id number] RECD: 07/24/23 07:59 STATUS: NIKKY TANA #: [id number] SOCORRO: 07/21/23 00:[address]: Melody Mathews DEPT: SURGICAL PATHOLOGY RECD BY: Rand Perez ENTERED: 07/24/23 07:59 SP TYPE: PLACENTA OTHR DR: Melody Primary Care Phys Tissues: Placenta, NOS Procedures: Surgery Specimen Level V HEADER OPERATION: Vaginal delivery PRE-OP DIAGNOSIS: Possible abruption TISSUE SUBMITTED: Placenta MICROSCOPIC DIAGNOSIS Paul placenta (427 gm): Umbilical cord - trivascular with no evidence of inflammation. Placental membranes - Focal acute deciduitis. Placental disc - foci of organizing intraparenchymal hemorrhage, Yoko-Jaswinder change and intravillous congestion. Mild chronic decidual inflammation. AM:roya 07/25/2023 MICROSCOPIC DESCRIPTION Slides are reviewed. GROSS DESCRIPTION SPECIMEN: PLACENTA / CLINICAL INFORMATION: A. Weight: 2.315 kg B. Gestational Age: 37 weeks C. Sex: Male PLACENTAL WEIGHT (POST FIXATION): 427 gm PLACENTAL DIMENSIONS: 14.0 x 13.0 x 3.0 cm PLACENTAL SHAPE: Usual ovoid PLACENTAL WEIGHT FOR GESTATIONAL AGE: Within 10-99th percentile MEMBRANES - Present A. Insertion: Marginal B. Site of rupture from edge: 8.0 cm from edge of placental disc C. Color of membrane: [place] D. Abnormalities: None UMBILICAL CORD - Present A. Color: [place] B. Insertion: Eccentric C. Length: 28.0 cm D. Diameter: 1.2 cm E. Number of vessels: Three F. Abnormalities: None PLACENTAL DISC - Present A. Color of surface: [place] B. surface abnormalities: None C. Maternal cotyledons: Intact with minimal tears D. Attached retro placental clot: No clot E. Cut surface: Dark red and spongy F. Lesions: Sections reveal two white, plaque-like masses each measuring 2.0 x 1.0 x 1.0 cm. G. Separate clot: Absent SECTIONS SUBMITTED: 1. Umbilical cord ( end notched) 2. Umbilical cord, placental end 3. Membrane roll 4. Placental disc, and maternal surfaces, lesion 5. Placental disc, and maternal surfaces, lesion 6. Placental disc, and maternal surfaces AM:roya 07/24/2023 TC:2 CPT: 19331
[2023-07-22 22:41] VITALS: BP 109/70; PULSE 76; TEMP 36.6; O2SAT 99
[2023-07-22] MEDS: Lactated Ringers 1,000 ML 200 ML IV (23:10)
[2023-07-22] MEDS: LACTATED RINGERS 500 ML 999 ML IV (23:10)
[2023-07-22 23:12] VITALS: BMI 21.4
[2023-07-22 23:27] LABS: Absolute Lymphocyte Count 2.12 X10^3/uL (0.83-4.51); Absolute Neutrophil Count 8.3 X10^3/uL (2.0-7.7); Basophil# 0.04 X10^3/uL; Basophil% 0.4 % (0-1); Eosinophil# 0.02 X10^3/uL; Eosinophils% 0.2 % (0-5); Hematocrit 30.8 % (37-47); Hemoglobin 10.1 g/dL (12.0-15.0); Lymphocyte # 2.12 X10^3/ul (0.83-4.51); Lymphocyte % 19.2 % (19-41); Mean Corp Hgb Conc 32.8 g/dL (32-36); Mean Corpuscular Volume 85.3 fL (81-99); Mean Platelet Vol. 9.7 fl (6.2-12.0); Monocyte# 0.53 X10^3/uL; Monocyte% 4.8 % (0-10); NRBC Flagged by Analyzer 0 % (0-5); Neutrophil # 8.28 X10^3/uL (2.7-7.7); Neutrophil % 74.8 % (47-70); Platelet Count 260 K/mm3 (150-450); RBC Distribution Width CV 13.7 % (11.6-14.6); RBC Distribution Width SD 42.3 fl (35.1-43.9); Red Blood Count 3.61 M/mm3 (4.2-5.4); White Blood Count 11.1 K/mm3 (4.4-11.0)
--- NOTE | 2023-07-22 23:27 | HP.PCM.OB_ITS ---
HPI - General General Date of Admission: 07/22/23 Date of Service: 07/22/23 Chief Complaint: labor HPI Narrative JYOTHI ALVES, is a 32 F at 37w3d who presents 5 cm with bloody show. Has had ctx's all day. Denies LOF. She offers no complaints. [facility] Medical History (Updated 07/22/23 @ 23:[address] Melody Mathews, DO) Former smoker History of pre-term labor Pre-eclampsia Home Medications Fa 1 tablet OTHER DAILY 04/30/21 [History Last Taken 06/21/23 08:00 1] Allergy/AdvReac Type Severity Reaction Status Date / Time No Known Allergies Allergy Verified 07/22/23 22:48 Surgical History (Updated 06/22/23 @ 05:43 by Cassy Fuller CNM) Previous section Social History Smoking Status: Former smoker History Elective abortions Hx Para 5 Spontaneous abortions Hx # Term Pregnancies Ectopic pregnancies Hx # Pregnancies Multiple births # of living children NST FHR Rate Baby A Baseline: 140 Variability:: Moderate Accelerations:: 15 x 15 Decelerations:: None NST Reactive:: Yes FHR Category:: Category I Uterine Activity:: ctx's q 2-4 min Vital Signs Vital Signs Vital Signs: 07/22/23 22:41 07/22/23 22:41 07/22/23 22:41 Temperature Temperature Source Temporal Pulse Rate 76 Blood Pressure 109/70 BP Systolic 109 BP Diastolic 70 Pulse Ox 07/22/23 22:41 07/22/23 22:41 Temperature 97.8 F Temperature Source Pulse Rate Blood Pressure BP Systolic BP Diastolic Pulse Ox 99 Weight Weight: 125 lb Body Mass Index (BMI) 21.4 Labs Labs Labs: Blood Type A POSITIVE Antibody Screen NEGATIVE Hct 30.8 % (37-47) L Hgb 10.1 g/dL (12.0-15.0) L Syphilis Total Ab Non-reactive VZV IgG Antibody 401 index (Immune >165) Rubella IgG Antibody Reactive (Nonreactive) Hep Bs Antigen Non-Reactive (Nonreactive) Hepatitis C Antibody Non-Reactive (Nonreactive) Chlamydia DNA (CARLOS) Negative (Negative) N.gonorrhoeae DNA (CARLOS) Negative (Negative) HIV 1&2 Antibody Non-Reactive (Nonreactive) Glucose 1 Hr 50 gm 108 mg/dL (70-140) Gest Glucose Tolerance MG/DL Group B Strep DNA Negative (Negative) Rhogam given: No Miscellaneous Test Assessment & Plan (1) Hx successful (vaginal after ), currently : (2) Previous delivery, antepartum: (3) 37 weeks gestation of : PLAN: Pt presents with ctx's at 5 cm and rapidly progressed to 9 cm. Admit for routine intrapartum care. GBS negative. EFW < 4500 g and pelvis adequate. AROM for clear fluid. Anticipate vaginal delivery. (4) Uterine contractions:
[2023-07-23] VITALS (30 sets, daily range): BP systolic 93–112; BP diastolic 56–76; PULSE 64–118; RESP 16–18; TEMP 36.6–37.1; O2SAT 95–99
[2023-07-23] MEDS: Oxytocin 15 Units/NS 250ml 15 UNITS/250 ML IV.SOLN 83 UNITS IV (00:10)
[2023-07-23] MEDS: Oxytocin 10 UNITS/ML Vial IM (00:16)
[2023-07-23] MEDS: Methylergonovine 0.2 MG/ML Ampul IM (00:25)
--- NOTE | 2023-07-23 00:30 | PCM.OPRPT ---
Problems Associated Problem List Diagnoses (1) 37 weeks gestation of : (2) (vaginal after ): Report of Operation Date of Procedure: 07/23/23 Pre-Operative Diagnosis: 37 week gestation, labor, history of section, history of Post-Operative Diagnosis: As above, precipitous delivery Surgery/Procedure Performed:: Description of Surgical Findings:: Pt rapidly progressed from 5 cm to 9 cm. VMI in DEBORAH position with dark red blood present at time of delivery. Placenta normal appearing and intact with no evidence of abruption. 3 VC. Apgars 8, 9. Placenta was sent to pathology to rule out abruption given clinical picture. Surgeon: Melody Mathews Type of Anesthesia: None Special Medications: None Specimen's removed: Placenta Drains: None Estimated Blood Loss (mL): 300 Fluids Replaced: N/A Description of Procedure: The patient presented to labor and delivery with contractions at 5 cm. She rapidly progressed to 9 cm and AROM performed for clear fluid. Patient was then complete and +1. With pushing the head of the infant was delivered in left occiput anterior position. With gentle downward traction the anterior shoulder was delivered. The posterior shoulder and body of the were delivered. A vigorous viable male was delivered without any force or delay. Dark red blood was present at time of delivery. The cord was clamped and cut by the father of the baby after 60 second delay. IV and IM Pitocin were initiated. The placenta spontaneously delivered and was noted to be normal-appearing and intact with a three-vessel cord. The patient's bleeding was more brisk than anticipated. The uterus was explored x1 and cleared of clot with no retained placental tissue or membranes palpated, and prior uterine incision intact. 1 dose of IM Methergine were given. No lacerations were noted on exam. Fundus was then firm and bleeding hemostatic. Sponge counts were correct. A vaginal sweep was performed. Grafts/Implants Used: None Complications None Admit VTE Documentation VTE Present on Admission: No
[2023-07-23 00:43] LABS: Syphilis Antibodies Non-reactive
[2023-07-23] MEDS: Acetaminophen 500 MG Tablet PO (01:08)
[2023-07-23 01:13] LABS: Pathology Specimen OB SEE PATHOLOGY REPORT
--- NOTE | 2023-07-23 03:35 | NURSING ---
Report received from Zulma DAVIS, taking over pt care at this time.
[2023-07-23] MEDS: Acetaminophen 500 MG Tablet 1000 MG PO (17:56)
[2023-07-24 00:35] VITALS: BP 102/61; PULSE 70; RESP 16; TEMP 36.4
[2023-07-24] MEDS: Acetaminophen 500 MG Tablet 1000 MG PO (01:02)
[2023-07-24 03:40] VITALS: BP 92/60; PULSE 72; RESP 16; TEMP 36.6; O2SAT 98
--- NOTE | 2023-07-24 08:36 | PCM.PN.OB ---
Subjective Subjective Patient is doing well this morning. Having some cramping that is controlled with ibuprofen. Lochia is normal. She is working on pumping. She is ambulating and voiding without difficulty. She denies lightheadedness, dizziness, chest pain, shortness of breath, leg pain. She is tolerating regular diet without nausea or vomiting. Objective Data Objective Data Vital Signs: Vital Signs Temp Pulse Resp BP Pulse Ox O2 Del Method 97.9 F 72 16 92/60 98 Room Air 07/24/23 03:40 07/24/23 03:40 07/24/23 03:40 07/24/23 03:40 07/24/23 03:40 07/24/23 03:40 Oxygen Delivery Method Room Air Weight: 125 lb Body Mass Index (BMI) 21.4 Intake & Output: Intake and Output for Last 24 Hours 07/22/23 07/23/23 07/24/23 23:59 23:59 23:59 Intake Total 943.33 / 943.33 Output Total 500 / 500 Balance 443.33 / 443.33 Lab / Micro Data 07/22/23 23:10 Physical Exam Const alert and no apparent distress General Appearance: comfortable HEENT normocephalic Resp normal respiratory effort GI soft to palpation, non-tender and non-distended GI Narrative: FF@U-3 Extremity no calf tenderness Assessment & Plan (1) (vaginal after ): PLAN: She is day 1 from a vaginal after prior section. She is doing well and desires discharge. She is meeting milestones for discharge. Discharge instructions reviewed and she will follow-up in the office in 1 to 2 weeks. To work with on pumping prior to discharge.
--- NOTE | 2023-07-24 08:41 | DCINST_ITS ---
Discharge Instructions Diet Discharge Diet: No restrictions Activity Discharge Activity: May Shower May resume sexual activity in: 6 weeks (nothing in the vagina for 6 weeks and no soaking in water for 6 weeks) Weight Bearing Status: Weight bearing as tolerated Lifting Restrictions: nothing heavier than baby Dressing / Incision Call your doctor if you observe: Fever of 101 or Higher, Coldness, Increased Pain, Numbness or Tingling, Change in Color, Inability to urinate, Inability to have a bowel movement, Using more than 1 pad per hour, Shortness of breath, Dizziness, Fainting spells, Swelling in the ankles, Chest pain, Increased palpitations (irregular heartbeat), Calf discomfort and Uncontrolled pain Cleanse incision/area with: Soap & Water Follow Up Care Please Follow Up With: Melody Mathews DO When: 1-2 weeks for early visit 6 week exam Test Results: Test results from this visit will be discussed in further detail at your follow- up appointment, if applicable. Discharge Plan Admission Admit Date/Time: 07/22/23 23:00 Primary Reason for Your Visit: delivery Attending Provider: Melody Mathews Primary Care Provider: Care Physician,Melody Primary Instructions Patient Instructions: After a Vaginal Discharge Orders/Prescriptions Prescriptions: No Action Fa 1 tablet OTHER DAILY Referrals / Follow Up: Care Physician,Melody Primary [Primary Care Provider] - Disposition Disposition (needs filled in before D/C Order can be placed): Home, Self Care
[2023-07-24 10:00] VITALS: BP 84/56; PULSE 78; RESP 16; TEMP 36.4
--- NOTE | 2023-07-24 12:38 | CASEMGMT ---
Social Work Assessment Labor and Delivery Unit Patient Address: [address] [place] [address] Phone number: [phone] Date of Referral: 07/23/23 Time of Referral:? 620 Referred By: Melody Mathews Date of Intervention: ?07/24/23? Time of Intervention:? 1129 Reason for Referral:? resources Sw completed chart review and acknowledges social work consult due to resources. Sw presented to bedside and introduced self to mother of baby (WILMA- Mar) and explained reason for sw involvement at this time. Sw completed psychosocial assessment and provided MOB with list of community resources, food resources, and literature on depression and anxiety. History obtained from: medical records and mother of baby (MOB)??? Household composition: Currently residing in the family home is MOB, father of baby (FOB- Michael Dixon) and their children, with the addition of baby. The children goes as follows: FOB children: Tyson (7 years old, FOB has full custody), London (9 years old) and Young (6 years old)- FOB has shared parenting with them, he gets them every other weekend. MOB children: Oliver (12 years old), Kelby (7 years old) and Fannie (6 years old) and Henny (age not known)- MOB has full custody of her children, they are with her all the time. Children parents have together: Eleanor (: 09/10/22) and baby Patrick (: 09/22/22) MOB denies any concerns with housing- states that housing is secure and safe. MOB states that all the children have their own bed. MOB states that they reside in a house and currently her family is working to put on an addition to the kitchen as well as a master bedroom and bath. Patient's parent/guardian status:? ?MOB reports that she and FOB met on Facebook. They have been together for 3 years. MOB denies any concerns of domestic violence or intimate partner violence. Medical History: WILMA is 32 female who is 6, para 5- now 6 following delivery of baby. WILMA received routine care during with [facility]. MOB delivered baby boy via vaginal delivery on 07/23/23 at 37 weeks gestation. Baby boy, named Patrick Cannon, was born weighing 5lb 6oz and his apgars were 8 and 9 at one and five minutes of life respectfully. Baby will be followed by Dr. Boateng for pediatrics. MOB states that she had a tubal ligation planned after her last son was born because she and DONTA did not want to have any more children. MOB states that when she went to her scheduled surgery the doctor told her that he could not do the surgery because WILMA was about 8 weeks at that time. MOB states that she did not envision having two babies ten months apart from each other, but she has accepted it and is happy that baby is here. Educational Status:? MOB states that she and DONTA both graduated from high school- no college education. MOB denies concerns with reading, or comprehension. Financial Status: WILMA is a stay at home MOB, MOB states that DONTA works as a [employer]- he is able to take one week off of work now that the baby has been born. Infant Supplies: MOB states that she has obtained everything she needs for baby, including: car seat, safe sleep space, clothes, diapers and wipes. MOB states that she does have a breast pump for home if she wants to pump and provide breast milk for baby. Childcare/Caregiver(s):? MOB states that she is the primary caregiver to baby, but will have help from family members, specifically paternal grandma whenever she needs help with childcare. Transportation:?? MOB states that both parents have their drivers license and reliable means of transportation. No transportation barriers at this time. Programs/Agencies Involved: ???WILMA is receiving food stamps and insurance through [employer]. Jonathan asked WILMA if she is connected to [employer], but MOB denied. Jonathan informed WILMA that she will be eligible for [place] services due to her household income and number of dependents that she has. MOB stated that she has been curious about the resources that [facility] can help her with- jonathan provided education and encouraged MOB to call and get appointment scheduled prior to discharge today. MOB expressed understanding. Children Services/Legal Issues:??MOB says that DONTA had a case with Children Services due to his child's mom, however WILMA has never had an open case or any involvement with Children Services. No issues or concerns warranting a referral to be made at this time. Behavioral Health Issues: ??Mental Health History:?MOB states that she and FOB do not have any mental health diagnoses. ?? Substance Use History: MOB denies?? Family History: MOB denies family history of substance use and mental health. ? Drug Screens: ??No urine screens observed in chart review. Family/Social Stressors:? MOB denies stressors at this time. Support Systems: MOB identifies FOB's mother as one of their biggest supports. MOB states that FOB family is who is helping do some renovations to their home. Depression/Shaken Baby/Safe Sleeping:? Sw educated MOB on signs and symptoms of baby blues and depression. MOB states that she has never experienced baby blues or . MOB acknowledged that she is aware of signs and symptoms to be on the lookout for. Jonathan educated MOB on shaken baby prevention and ABCs of safe sleep. MOB expressed understanding. ASSESSMENT:? MOB and baby admitted at this time following labor and delivery. MOB states that she does not have any stressors at this time and is receptive to getting connected to community resources to help with costs of formula. MOB has natural supports in place although limited. MOB has obtained everything she needs for baby. MOB answered questions and engaged in conversation during psychosocial assessment. PLAN:? MOB and baby to be discharged when medically ready. ?No other services requested or indicated. Niko Ferris, MEDICAL BILLING ASSISTANT, CLIENT STRATEGIST
[2023-07-24 14:00] VITALS: BP 93/61; PULSE 80; RESP 16; TEMP 36.9
--- NOTE | 2023-08-25 13:30 | NURSING ---
08/25 corrected vaginal delivery
== END 2023-07-24 15:10 | disposition home or self-care (01) | DRG 560 ==
LOC: WPOUT 23:00 → WP 23:00
PROVIDERS: Admitting Provider Obstetrics & Gynecology; Visit Provider Obstetrics & Gynecology
DX: O34.219 Maternal care for unspecified type scar from previous cesarean delivery (principal); Z37.0 Single live birth; O62.3 Precipitate labor; Z3A.37 37 weeks gestation of pregnancy; Z87.59 Personal history of other complications of pregnancy, childbirth and the puerperium; Z87.891 Personal history of nicotine dependence
CPT/HCPCS: 59025; 59050; 85025; 86780; 86850; 86900; 86901; 88307; 99221; J7120; G0378

== ENCOUNTER 2023-09-21 12:41 | Day surgery (SDC) | payer MEDICAID, SELFPAY ==
[2023-09-21] VITALS (7 sets, daily range): BP systolic 95–107; BP diastolic 61–72; PULSE 62–108; RESP 16–18; TEMP 36–36.9; O2SAT 96–100; BMI 19.6
--- OUTSIDE RECORDS SUMMARY | 2023-09-21 13:10 | XMS RPT_ITS | CCD ---
Author Name Unknown Address [address] [place] [address] Organization [facility] Care Team Providers Care Wire Chief Name Role Phone Unavailable Primary Care Provider HARMONY Kraft Attending Unavailable RENEE MONSIVAIS Attending Unavailable LIAM MATHEWS Attending Unavailable LIAM MATHEWS Referring Unavailable LIAM MATHEWS Attending LIAM Valdes Attending CASSY Culp Attending Unavailable RENEE MONSIVAIS Attending Unavailable Medications Current Medications Medication Drug Class(es) Dates Sig (Normalized) Sig (Original) acetaminophen 325 mg oral tablet (1 source) Start: 05-02-2021 take 650 mg by mouth every six hours, then take 4000 mg by mouth every twenty-four hours 650 mg, Oral, EVERY 6 HOURS, First dose on 05/02/21 at 1630 Maximum dose of acetaminophen is 4000 mg from all sources in 24 hours. benzethonium chloride 2 mg/ml / benzocaine 200 mg/ml topical spray (1 source) Standardized Chemical Allergen Start: 05-02-2021 Topical, PRN, Pain, Starting on 05/02/21 at 1610 Apply to perineal area. Patient is capable and may self administer at bedside. docusate sodium 100 mg oral capsule (1 source) Start: 05-02-2021 take 100 mg by mouth twice daily as needed for constipation 100 mg, Oral, 2 TIMES DAILY PRN, Constipation, Starting on 05/02/21 at 1610 Do not crush or break. lanolin 1000 mg/ml topical cream (1 source) Start: 05-02-2021 Topical, PRN, Dry Skin, nipple discomfort, Starting on 05/02/21 at 1610, 2 ml ondansetron 2 mg/ml injection (1 source) Serotonin-3 Receptor Antagonist Start: 05-02-2021 4 mg, IntraVENous, EVERY 6 HOURS PRN, Nausea, Starting on 05/02/21 at 1610, oxytocin (PITOCIN) 10 unit bolus from the bag (1 source) Start: 05-02-2021 oxytocin (PITOCIN) 10 unit bolus from the bag MV-Min-Fe Fum-FA-DHA ( 1 PO) (1 source) MV-Min- Fe Fum-FA-DHA ( 1 PO) Take 1 tablet by mouth daily 0 Active simethicone 80 mg chewable tablet (1 source) Start: 05-02-2021 take 80 mg by mouth every six hours as needed 80 mg, Oral, EVERY 6 HOURS PRN, Cramping, Flatulence, Starting on 05/02/21 at 1610, witch hue 500 mg/ml medicated pad (1 source) Start: 05-02-2021 Topical, PRN, Hemorrhoids, For perineal pain or discomfort, Starting on 05/02/21 at 1610 Apply to perineal area. Patient is capable and may self administer at bedside. Completed/Discontinued Medications Medication Drug Class(es) Dates Sig (Normalized) Sig (Original) betamethasone 3 mg/ml / betamethasone acetate 3 mg/ml injectable suspension (1 source) Corticosteroid Start: 05-01-2021 End: 05-01-2021 betamethasone acetate-betamethason e sodium phosphate (CELESTONE) injection 12 mg Problems Problem Classification Problem Date Documented Date Episodic/Chronic Genitourinary symptoms and ill-defined conditions (1 source) Dysuria; Translations: [Dysuria] 06-02-2023 Episodic Hypertension complicating ; childbirth and the puerperium (9 sources) pre-eclampsia; Translations: [Unspecified pre-eclampsia, complicating the puerperium] Onset: 05-31-2023 05-31-2023 Episodic Immunizations and screening for infectious disease (1 source) Needs influenza immunization; Translations: [Encounter for immunization] 06-27-2023 Episodic Other complications of (2 sources) condition affecting obstetrical care of mother; Translations: [Maternal care for abnormalities of the heart rate or rhythm, unspecified trimester, not applicable or unspecified] Onset: 04-30-2021 Episodic Other complications of (13 sources) Finding of pattern of ; Translations: [Supervision of other high risk pregnancies, unspecified trimester] Onset: 05-31-2023 06-02-2023 Episodic Other complications of (12 sources) H/O: premature delivery; Translations: [Supervision of other high risk pregnancies, unspecified trimester] Onset: 05-31-2023 06-02-2023 Episodic Other complications of (2 sources) Uterine size for dates discrepancy; Translations: [Uterine size-date discrepancy, third trimester] 06-02-2023 Episodic Other complications of (9 sources) Urinary tract infection in ; Translations: [Unspecified infection of urinary tract in , unspecified trimester] Onset: 05-31-2023 05-31-2023 Episodic Other complications of (5 sources) High risk ; Translations: [Supervision of other high risk pregnancies, third trimester] Onset: 07-11-2023 07-11-2023 Episodic Other and delivery including normal (17 sources) Vaginal delivery; Translations: [Encounter for full-term uncomplicated delivery] Onset: 05-02-2021 Episodic Other screening for suspected conditions (not mental disorders or infectious disease) (1 source) Patient encounter status; Translations: [Encounter for other specified screening] 06-16-2023 Episodic Residual codes; unclassified (9 sources) History of past delivery; Translations: [Personal history of other complications of , childbirth and the puerperium] Onset: 05-31-2023 05-31-2023 Episodic Residual codes; unclassified (9 sources) History of placental abruption; Translations: [Personal history of other complications of , childbirth and the puerperium] Onset: 05-31-2023 05-31-2023 Episodic Residual codes; unclassified (2 sources) Gestation period, 32 weeks; Translations: [32 weeks gestation of ] 06-16-2023 Episodic Residual codes; unclassified (1 source) Gestation period, 33 weeks; Translations: [33 weeks gestation of ] 06-27-2023 Episodic Residual codes; unclassified (1 source) Gestation period, 35 weeks; Translations: [35 weeks gestation of ] 07-11-2023 Episodic Residual codes; unclassified (1 source) Gestation period, 37 weeks; Translations: [37 weeks gestation of ] 07-20-2023 Episodic Results Test Name Value Interpretation Reference Range Facil ity Vital Signs Date Time Vital Sign Value Performing Clinician Facility 07-20-2023 10:28-0500 Body weight 56.7 kg Cassy Fuller SEAMER OPERATOR.CNM Work Phone: [facility] 07-20-2023 10:28-0500 Diastolic blood pressure 62 mm[Hg] Cassy Fuller SEAMER OPERATOR.CNM Work Phone: [facility] 07-20-2023 10:28-0500 Systolic blood pressure 98 mm[Hg] Cassy Fuller SEAMER OPERATOR.CNM Work Phone: [facility] 07-11-2023 11:24-0500 Body weight 56.52 kg Renee Monsivais APRN.CNM Work Phone: [facility] 07-11-2023 11:24-0500 Diastolic blood pressure 60 mm[Hg] Renee Monsivais APRN.CNM Work Phone: [facility] 07-11-2023 11:24-0500 Systolic blood pressure 98 mm[Hg] Renee Monsivais APRN.CNM Work Phone: [facility] 06-27-2023 10:24-0400 Body weight 57.61 kg Harmony Goodson MD Work Phone: [facility] 06-27-2023 10:24-0400 Diastolic blood pressure 58 mm[Hg] Harmony Goodson MD Work Phone: [facility] 06-27-2023 10:24-0400 Systolic blood pressure 98 mm[Hg] Harmony Goodson MD Work Phone: [facility] 06-19-2023 11:09-0400 Body weight 57.79 kg Renee Monsivais APRN.CNM Work Phone: [facility] 06-19-2023 11:09-0400 Diastolic blood pressure 64 mm[Hg] Renee Monsivais APRN.CNM Work Phone: [facility] 06-19-2023 11:09-0400 Systolic blood pressure 110 mm[Hg] Renee Loi JONESCNM Work Phone: [facility] 06-16-2023 11:52-0400 Diastolic blood pressure 58 mm[Hg] Ob Ultrasound Work Phone: [facility] 06-16-2023 11:52-0400 Systolic blood pressure 94 mm[Hg] Ob Ultrasound Work Phone: [facility] 06-02-2023 09:07-0400 Body height 162.6 cm Liam Mathews MD Work Phone: [facility] 06-02-2023 09:07-0400 Body weight 56.97 kg Liam Mathews MD Work Phone: [facility] 06-02-2023 09:07-0400 Diastolic blood pressure 60 mm[Hg] Liam Mathews MD Work Phone: [facility] 06-02-2023 09:07-0400 Systolic blood pressure 100 mm[Hg] Liam Mathews MD Work Phone: [facility] 05-04-2021 08:23-0400 Body temperature 99.19 [degF] Josesito Pruitt MD Work Phone: [facility] Work Phone: 05-04-2021 08:23-0400 Diastolic blood pressure 72 mm[Hg] Josesito Pruitt MD Work Phone: [facility] Work Phone: 05-04-2021 08:23-0400 Heart rate 82 /min Josesito Pruitt MD Work Phone: [facility] Work Phone: 05-04-2021 08:23-0400 Respiratory rate 20 /min Josesito Pruitt MD Work Phone: [facility] Work Phone: 05-04-2021 08:23-0400 SaO2% (BldA) [Mass fraction] 97 % Josesito Pruitt MD Work Phone: [facility] Work Phone: 05-04-2021 08:23-0400 Systolic blood pressure 110 mm[Hg] Josesito Pruitt MD Work Phone: [facility] Work Phone: 04-30-2021 23:29-0400 Body height 162.6 cm Josesito Pruitt MD Work Phone: [facility] Work Phone: 04-30-2021 23:29-0400 Body mass index (BMI) [Ratio] 21.46 kg/m2 Josesito Pruitt MD Work Phone: [facility] Work Phone: 04-30-2021 23:29-0400 Body weight 56.7 kg Josesito Pruitt MD Work Phone: [facility] Work Phone: Encounters Encounter Date Encounter Type Care Provider Facility Start: 09-18-2023 End: 09-18-2023 ambulatory LIAM MATHEWS Facility:[facility] Start: 09-05-2023 End: 09-05-2023 ambulatory HARMONY GOODSON Facility:[facility] Start: 08-24-2023 End: 08-24-2023 ambulatory [facility] Facility:[facility] Start: [facility] Work Phone: OB/Gynecology Procedures Date Procedure Procedure Detail Performing Clinician Start: 07-20-2023 URINE OB DIP B/O Cassy Fuller APRN.CNM Work Phone: Start: 07-11-2023 URINE OB DIP B/O Renee Monsivais SEAMER OPERATOR.C NM Work Phone: Start: 06-27-2023 INFLUENZA VACCINE, AGE 6 MO - 64 YR, QUADRIVALENT (AFLURIA, FLULAVAL, FLUZONE) Harmony Goodson MD Work Phone: Start: 06-19-2023 URINE OB DIP B/O Renee Monsivais SEAMER OPERATOR.C NM Work Phone: Start: 06-16-2023 Us preg uterus after 1st trimest 09/04 gestation Liam Mathews MD Work Phone: Start: 06-02-2023 Urnls dip stick/tablet rgnt auto w/o microscopy Liam Mathews MD Work Phone: Start: 06-02-2023 URINE OB DIP B/O Liam Mathews MD Work Phone: Start: 05-31-2023 H/O: section Hx successful (vaginal after ), currently Liam Mathews MD Work Phone: Start: 05-02-2021 Blood count complete automated Anna Frazier DO Work Phone: Start: 05-02-2021 PROTIME/INR & PTT Anna Frazier DO Work Phone: Start: 05-01-2021 RUBELLA IMMUNE Jennifer Gonzalez DO Work Phone: Start: 05-01-2021 Antibody screen Josesito Pruitt MD Work Phone: Start: 05-01-2021 Iadna multiple organisms direct probe tq Jennifer Gonzalez DO Work Phone: Start: 05-01-2021 Blood typing serologic abo Jennifer Gonzalez DO Work Phone: Start: 05-01-2021 Comprehensive metabolic panel Jennifer Gonzalez DO Work Phone: Start: 04-30-2021 C. TRACHOMATIS, EXTERNAL RESULT Historical Provider Start: 04-30-2021 RH FACTOR, EXTERNAL RESULT Historical Provider Start: 10-20-2020 ABO, EXTERNAL RESULT Historical Provider Start: 10-20-2020 Antibody hiv-1&hiv-2 single result Historical Provider Start: 10-20-2020 HEPATITIS B, EXTERNAL RESULT Historical Provider Start: 10-20-2020 HEPATITIS C ANTIBODY, EXTERNAL RESULT Historical Provider Start: 10-20-2020 HIV, EXTERNAL RESULT Historical Provider Start: 10-20-2020 Iaad ia hepatitis b surface antigen Historical Provider Start: 10-20-2020 RPR, EXTERNAL RESULT Historical Provider Start: 10-12-2020 N. GONORRHOEAE, EXTERNAL RESULT Historical Provider H/O: section Hx success ful (vaginal after ), currently Liam Mathews MD Work Phone: H/O: section Hx success ful (vaginal after ), currently Ob Ultrasound Work Phone: H/O: section Hx success ful (vaginal after ), currently Harmony Goodson MD Work Phone: H/O: section Hx success ful (vaginal after ), currently Cassy Fuller SEAMER OPERATORSidneyCNM Work Phone: Plan of Treatment Date Care Activity Detail Author Start: 03-09-2028 Pap Testing Pap Testing [facility] Start: 03-05-2028 HPV Testing HPV Testing [facility] Start: 06-02-2023 End: 06-02-2024 OBSTETRIC ULTRASOUND [facility] OBSTETRIC ULTRASOUND [facility] Anc Imaging Routine Hx successful (vaginal after ), currently Short interval between pregnancies affecting , antepartum History of delivery, currently with care elsewhere, antepartum Uterine size-date discrepancy, third trimester Expected: 06/02/2023, Expires: 06/02/2024 [facility] Work Phone: Immunizations Immunization Date Immunization Notes Care Provider [facility] 06-27-2023 influenza, injectabl e, quadrivalent, contains preservative Harmony Goodson MD Work Phone: [facility] 09-11-2022 influenza, seasonal, injectable Harmony Goodson MD Work Phone: [facility] Work Phone: 09-11-2022 influenza virus vaccine, unspecified formulation Liam Mathews MD Work Phone: [facility] 05-04-2021 measles, mumps and rubella virus vaccine Josesito Pruitt MD Work Phone: [facility] Work Phone: 11-25-2016 measles, mumps and rubella virus vaccine Harmony Goodson MD Work Phone: [facility] Work Phone: 10-20-2015 influenza, seasonal, injectable, preservative free Harmony Goodson MD Work Phone: [facility] Work Phone: NEGATED: Highlighted row has not occurred!05-04-2021 tetanus toxoid, reduced diphtheria toxoid, and acellular pertussis vaccine, adsorbed Josesito Pruitt MD Work Phone: [facility] Work Phone: Payers Date Payer Category Payer Medicaid [employer] [place] [employer] [id number] 2022-Present [phone] [address] [place] [address] Medicaid [id number] 2022 Medicaid [id number] Social History Date Type Detail Facility Start: 05-03-2021 Tobacco smoking stat [facility] Never smoker [facility] Work Phone: Start: 05-03-2021 End: 05-31-2023 Tobacco use and exposure Never used [facility] Work Phone: Start: 05-03-2021 End: 07-24-2023 Alcohol intake Ex-drinker (finding) [facility] Work Phone: Start: 1990 Sex Assigned At Not on file [facility] Work Phone: Exposure to SARS-CoV -2 (event) Not sure [facility] smoking consumption unknown [facility] Start: 06-02-2023 End: 07-11-2023 Gender identity Not on file [facility] Start: 05-31-2023 [facility] Work Phone: End: 01-20-2021 History of tobacco use Current smoker [facility] Work Phone: End: 01-20-2021 History of tobacco use Cigarette Smoker [facility] Work Phone: Start: 05-31-2023 End: 07-11-2023 Cigarettes smoked current (pack per day) - Reported 1 [facility] National Score (1-10 0), lower number is lower risk 42 [facility] Start: 05-31-2023 Education 12 [facility] Start: 05-31-2023 Alcohol Comment [facility] Start: 11-16-2022 [facility] Goals Date Patient Goal Desired Activity /State Personal health goal Clinical Notes 05-03-2021 to 09-18-2023 Karina Cote RN - 07/24/2023 8:41 AM ESTPrenatal Quick Notes - Cassy Fuller APRN.CNM - 07/20/2023 10:35 AM ESTPatient InstructionsPatient InstructionsPatient InstructionsPatient Instructions Note Date & Type Note Facility 09-18-2023 Note HNO ID: [id number] Author: LIAM MATHEWS MD Service: ? 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 She is 100% certain she does not desire future . SOCIAL HISTORY: Social History Tobacco Use Smoking status: Former Packs/day: 1 Types: Cigarettes Quit date: 01/20/2021 Years since quittin.6 Smokeless tobacco: Never Vaping Use Vaping Use: Never used Substance Use Topics Alcohol use: Not Currently Comment: Occasionally Drug use: Never ALLERGIES No Known Allergies Current Outpatient Medications on File Prior to Visit Medication Sig medroxyPROGESTERone (DEPO-PROVERA) 150 mg/mL Inject 1 mL intramuscularly every 12 weeks. vit 75/iron/folic/om3 (ONE A DAY WOMEN'S DHA ORAL) Take 1 tablet by mouth once daily. Current Facility-Administered Medications on File Prior to Visit Medication medroxyPROGESTERone 150 mg injection (DEPO-PROVERA) OBJECTIVE: VITALS: BP 100/60 Wt 116 lb 12.8 oz (53 kg) LMP 11/02/2022 (Exact Date) Yes BMI 20.05 kg/m? HEENT: Normocephalic, atraumatic, Mucus membranes moist without lesions. NECK: Soft and Supple. No adenopathy , thyromegaly or bruits. SKIN: No lesions. CHEST: Clear to auscultation. No wheezes or rales. Good air exchange. HEART: Regular rate and rhythm No S3 or S4. No gallops or rubs. BREAST: No masses, thickenings, skin changes, nipple discharge or axillary lymphadenopathy. BACK: Nontender with no CVA tenderness. ABDOMEN: Soft, non-tender, non-distended, no masses, no hepatosplenomegaly. PELVIC: External genitalia, anus and urethral meatus are normal in appearance and without lesions. Vagina and cervix are normal in appearance on speculum examination. Bimanual pelvic and rectovaginal examination were negative for urethral, bladder, or pelvic masses, parametrial thickening, or cul-de-sac nodularity. Uterus normal size and nontender. There were no rectal masses and the guaiac negative. LOWER EXTREMITIES: There was no pitting edema, no palpable cords and no skin changes. ASSESSMENT: pre op, request for sterilization PLAN: 1) Discussed laparoscopic bilateral salpingectomy. She understands sterilization is permanent and irreversible, and there is a risk of regret. She is 100% certain she does not desire future . She understands alternative forms of contraception including LARC. The rationale for the proposed surgery was discussed in addition to risks, benefits, and alternatives. General pre- and post-operative care was reviewed. Questions were answered. After discussion, the patient indicated a desire to proceed with the planned surgery. Liam Mathews DO Medical Decision Making: Problems: Moderate: New problem with uncertain prognosis Risk: Moderate: Decision on minor surgery w/ risk factors Medical Decision Making Level: 4 - Moderate [facility] 09-18-2023 Note HNO ID: [id number] Author: LIAM MATHEWS MD Service: ? Author Type: Physician Type: Progress Notes Filed: 09/18/2023 10:50 Note Text: Facilities Operator offered: Patient declines. VISIT Jyothi Alves is a 32 year old year old here for visit. Delivery Summary: 07/23/2023 ROS/ Recovery: Feeding: Breast and bottle feeding problems: None Menses since delivery: none Menstrual pattern prior to : Regular periods [place] since delivery: Resumed Depression: denies symptoms of depression. OB Depression and Anxiety Screening- This Encounter (since 09/17/2023) Over the past 2 weeks have you felt down, depressed, or hopeless? Negative Over the past two weeks, have you felt little interest or pleasure in doing things?? 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 History of pre-eclampsia in prior , currently Placental abruption Pre-eclampsia in period 05/31/2023 PAST SURGICAL HISTORY Procedure Laterality Date DELIVERY ONLY 2011 COLONOSCOPY SCREENING 03/2022 FAMILY HISTORY Problem Relation Age of Onset Diabetes Mother other (lung issues) Mother Asthma Father No Known Problems Sister No Known Problems Brother Asthma Brother No Known Problems Maternal Grandmother No Known Problems Maternal Grandfather No Known Problems Paternal Grandmother No Known Problems Paternal Grandfather No Known Problems Son No Known Problems Son No Known Problems Son No Known Problems Daughter No Known Problems Daughter Social History Tobacco Use Smoking status: Former Packs/day: 1 Types: Cigarettes Quit date: 01/20/2021 Years since quittin.6 Smokeless tobacco: Never Vaping Use Vaping Use: Never used Substance Use Topics Alcohol use: Not Currently Comment: Occasionally Drug use: Never PHYSICAL EXAMINATION: BP 100/60 Wt 116 lb 12.8 oz (53.0kg) LMP 11/02/2022 GENERAL: pleasant, female in no apparent distress HEENT: Normocephalic and atraumatic NECK: full range of motion DERMATOLOGY: Normal, without lesions, non-icteric, and non-hirsute BREAST: soft, non-tender, symmetric, no dominant mass, normal nipple-areolar complex, no lymphadenopathy, and no nipple discharge CHEST: Normal inspiratory effort ABDOMEN: soft, non-tender, and no masses. INCISION: N/A PELVIC: external genitalia normal, normal Bartholin's glands, urethra, Leary's glands, no vulvar lesions, no cervical lesions, good vaginal support, physiologic discharge present, normal appearing perineal body and perianal region BIMANUAL: uterus normal size, shape and consistency, no adnexal masses, and non-tender NEURO: exam grossly non-focal EXTREMITIES: normal ASSESSMENT AND PLAN: 32 year old status post with normal course. - Pap today Contraception plan: Depo Provera and tubal ligation Follow up: RTC for post op visit Liam Mathews DO [facility] 09-05-2023 Note HNO ID: [id number] Author: Saba Aviles RN Service: ? Author Type: Registered Nurse Type: Progress Notes Filed: 09/05/2023 9:44 AM Note Text: Patient identified by name and date of . Jyothi Alves is here for a Depo Provera injection. Patient brought medication. Date last injected: out of range - negative test Depo-Provera, 150 mg, administered IM right upper quadrant gluteus, Lot # [id number], expiration date 10/04/2027. Depo-Provera was given without incident. Date of last menses: Patient's last menstrual period was 11/02/2022 (exact date). Irregular bleeding - No Menses ceased - Yes STD prevention discussed: Yes Patient instructed to return to clinic in 12 weeks. [email or web address] Provider Andrew Moss MD was present in office at time of injection. Saba Aviles RN [facility] 08-24-2023 Note HNO ID: [id number] Author: Liam Mathews MD Service: ? Author Type: Physician Type: Progress Notes Filed: 08/24/2023 1:56 PM Note Text: EARLY VISIT Jyothi Alves is a 32 year old here for 4 week visit. Delivery Summary: 07/23/2023 ROS: General: Denies any fever or chills Hypertension Screening: Headache? No. Visual Changes? No Epigastric Pain? No Increased Swelling? No Taking any BP medications at home? No If applicable, monitoring BP at home? (If Yes, include results) NA Mood: normal Depression: denies symptoms of depression. OB Depression and Anxiety Screening- This Encounter (since 08/23/2023) Over the past 2 weeks have you felt down, depressed, or hopeless? Negative Over the past two weeks, have you felt little interest or pleasure in doing things?? Negative Feeling nervous, anxious or on edge 0-Not at all Not being able to stop or control worrying 0-Not al all Anxiety Pre-Screening Total (If >/= 3 additional questions will be reviewed) 0 Feeding: Breast and bottle feeding problems: None Bladder: No dysuria, gross hematuria, urinary frequency, urinary urgency, or incontinence Bowel symptoms: Negative for abdominal discomfort, blood in stools or black stools and change in bowel habits Abdomen: N/A Bleeding: none Bottom and Perineum: No issues Sleep: no sleep concerns and sleeps in bassinet/crib in parent's room, feels rested [place] since delivery: Not resumed Emotional support: Yes Exercise: N/A Other issues: None PHYSICAL EXAMINATION: BP 110/72 Wt 115 lb 9.6 oz (52.4 kg) LMP 11/02/2022 (Exact Date) Yes BMI 19.84 kg/m? General: pleasant,female in no apparent distress, AANDO x 3. Skin warm and intact. Breast: Deferred Abdomen: Deferred /Incision: N/A Pelvic: Deferred Bimanual: Deferred ASSESSMENT AND PLAN: 32 year old status post with normal course. Contraception plan: Depo Provera now and then tubal. She understands tubal sterilization is permanent and irreversible, and there is a risk for regret. Desires to proceed with sterilization and surgery sheet completed. Reinforced 6-week pelvic rest. Encouraged condom usage should patient deviate. Education: resources provided - see MA/RN note H/o abnormal pap- F/u 6 week Follow up: Return to Clinic for 6 week visit and as needed Liam Mathews DO [facility] 07-24-2023 Note HNO ID: [id number] Author: Karina Cote RN Service: ? Author Type: ? Type: Progress Notes Filed: 07/24/2023 8:44 AM Note Text: Patient delivered via at [facility] on 07/23/23 per Liam Mathews DO. See OB Outcome note. Karina Cote RN [facility] 07-24-2023 History of Presen t illness Narrative Patient delivered via at [facility] on 07/23/23 per Liam Mathews DO. See OB Outcome note. Karina Cote RN documented in this encounter [facility] 07-20-2023 Miscellaneous Notes Jyothi Alves is a 32 year old female who presents at 37w1d for a routine visit. Good movement. Denies any contractions or cramping. Denies headache, visual changes, chest pain, shortness of breath, vaginal bleeding, leakage of fluid, or dysuria. Feeling well, no complaints. Size equal to dates. 25 lbs TWG. Labor precautions reviewed. RTC in 1 week or sooner if needed. Cassy Fuller APRN.CNM documented in this encounter [facility] 07-20-2023 Instructions Carlton Valadez Cma - 07/20/2023 10:17 AM EST SEQUENTIAL SCREENINGS The [facility] offers sequential screenings for women who are interested in screenings for chromosomal abnormalities and certain defects during a . The sequential screen combines ultrasound and blood tests to determine the risk of chromosomal abnormalities, including Down's Syndrome (Trisomy 21) and Trisomy 18, as well as open neural tube defects including spina bifida. Ultrasound examination is performed between 11 weeks and 13 weeks gestational age. Blood tests are drawn after the ultrasound and again later in the between 15 and 21 weeks gestational age. Please let your physician know if you are interested in this testing. It will require an appointment with our highway traffic control technician. This is not an ultrasound performed by a physician in our office during a routine visit. SIGNS AND SYMPTOMS OF LABOR 1. Contractions every 10 minutes or more often 2. Clear, pink, or brownish fluid (water) leaking from vagina 3. Feeling that baby is pushing down, pressure 4. Low, dull backache 5. Cramps that feel like a period 6. Cramps with or without diarrhea If you notice any of the above symptoms, contact our office at [phone] and ask to speak with a nurse. After hours, you can call doctors registry at [phone] OR call [facility] at [phone] and ask to have the doctor cheese production supervisor paged. If you consider this an emergency, dial [phone] or go to your nearest emergency department. NEED HELP? Are you dealing with a violent or abusive relationship? Are you a victim of rape or sexual assult? Call [facility] ([place]) 24 hour Crisis Hotline: 860.977.4365 or 464-471-5995. MANUAL Your Guide to a Healthy manual is now on-line. Visit [email or web address] to download your free copy documented in this encounter [facility] 07-12-2023 Miscellaneous Notes 2nd and final risk assessment form submitted 07/12/2023. Karina Kramer RN documented in this encounter [facility] 07-11-2023 Instructions Carlton Valadez Cma - 07/11/2023 11:19 AM EST SEQUENTIAL SCREENINGS The [facility] offers sequential screenings for women who are interested in screenings for chromosomal abnormalities and certain defects during a . The sequential screen combines ultrasound and blood tests to determine the risk of chromosomal abnormalities, including Down's Syndrome (Trisomy 21) and Trisomy 18, as well as open neural tube defects including spina bifida. Ultrasound examination is performed between 11 weeks and 13 weeks gestational age. Blood tests are drawn after the ultrasound and again later in the between 15 and 21 weeks gestational age. Please let your physician know if you are interested in this testing. It will require an appointment with our highway traffic control technician. This is not an ultrasound performed by a physician in our office during a routine visit. SIGNS AND SYMPTOMS OF LABOR 1. Contractions every 10 minutes or more often 2. Clear, pink, or brownish fluid (water) leaking from vagina 3. Feeling that baby is pushing down, pressure 4. Low, dull backache 5. Cramps that feel like a period 6. Cramps with or without diarrhea If you notice any of the above symptoms, contact our office at [phone] and ask to speak with a nurse. After hours, you can call doctors registry at [phone] OR call [facility] at [phone] and ask to have the doctor cheese production supervisor paged. If you consider this an emergency, dial 2-4-4 or go to your nearest emergency department. NEED HELP? Are you dealing with a violent or abusive relationship? Are you a victim of rape or sexual assult? Call [facility] ([place]) 24 hour Crisis Hotline: 117.973.2198 or 467-830-1864. MANUAL Your Guide to a Healthy manual is now on-line. Visit [email or web address] to download your free copy documented in this encounter [facility] 07-11-2023 Miscellaneous Notes OMAR-S: Jyothi Alves is a 32 year old female who presents at 35w6d with ALBA:08/09/2023, by Last Menstrual Period for a routine visit. Good FM. Denies headache, visual changes, chest pain, shortness of breath, vaginal bleeding, leakage of fluid, or dysuria. Feeling well, no complaints. O: See flow sheet Gen: No apparent distress Abd: Gravid, nontender ASSESSMENT/PLAN: 1. with care elsewhere, antepartum 2. 35 weeks gestation of P: 1) PTL precautions reviewed and when to call 2) RTO in one week 3) Planning TOLAC 4) GBS today due to history of PTD 5) Can stop Prometrium. Continue PNV Renee Monsivais APRN.CNM documented in this encounter [facility] 06-27-2023 Miscellaneous Notes RR- VB No. LOF No. CTXS No. Movement: present. Other c/o: No. intermittent WILLIAM relived w/ tylenol, no visual changes. Medication list reviewed. Physical Exam See Flow Sheet Abd: soft, nontender, gravid Ext: edema: Trace A/P 33w6d Estimated Date of Delivery: 08/09/23 GBS next visit plans TOLAC Growth scan reviewed 21% f/u in 1-2 weeks or prn flu vaccine today states had TDAP at [place] Harmony Goodson M.D. documented in this encounter [facility] 06-27-2023 Instructions Anastasiya Kaur Ma - 06/27/2023 10:13 AM EDT SEQUENTIAL SCREENINGS The [facility] offers sequential screenings for women who are interested in screenings for chromosomal abnormalities and certain defects during a . The sequential screen combines ultrasound and blood tests to determine the risk of chromosomal abnormalities, including Down's Syndrome (Trisomy 21) and Trisomy 18, as well as open neural tube defects including spina bifida. Ultrasound examination is performed between 11 weeks and 13 weeks gestational age. Blood tests are drawn after the ultrasound and again later in the between 15 and 21 weeks gestational age. Please let your physician know if you are interested in this testing. It will require an appointment with our highway traffic control technician. This is not an ultrasound performed by a physician in our office during a routine visit. SIGNS AND SYMPTOMS OF LABOR 1. Contractions every 10 minutes or more often 2. Clear, pink, or brownish fluid (water) leaking from vagina 3. Feeling that baby is pushing down, pressure 4. Low, dull backache 5. Cramps that feel like a period 6. Cramps with or without diarrhea If you notice any of the above symptoms, contact our office at [phone] and ask to speak with a nurse. After hours, you can call doctors registry at [phone] OR call [facility] at [phone] and ask to have the doctor cheese production supervisor paged. If you consider this an emergency, dial or go to your nearest emergency department. NEED HELP? Are you dealing with a violent or abusive relationship? Are you a victim of rape or sexual assult? Call [facility] ([place]) 24 hour Crisis Hotline: 827.140.5910 or 647-732-8189. MANUAL Your Guide to a Healthy manual is now on-line. Visit [email or web address] to download your free copy documented in this encounter [facility] 06-23-2023 Miscellaneous Notes Called and spoke to patient regarding back pain. Had a UTI, given IV fluids and antibiotics. Able to keep fluids down but not food. Doing ok with antibiotic though she feels. She is going to monitor throughout the night and if no improvement to go to labor and delivery for evaluation. Denies headache,visual changes, abdominal pain or other concerns. Renee Monsivais APRN.CNM Pt calling and stated that she is being tx for a UTI, pt is having nausea and is requesting something to help her. Pt stated that she has had 4 episodes of vomiting. Pt is able to keep water down but she is not able to keep food down. Pt uses pharmacy listed. Daaynna Otoole LPN documented in this encounter [facility] 06-19-2023 Miscellaneous Notes OMAR-S: Jyothi Alves is a 32 year old female who presents at 32w5d with ALBA:08/09/2023, by Last Menstrual Period for a routine visit. Good FM. Denies headache, visual changes, chest pain, shortness of breath, vaginal bleeding, leakage of fluid, or dysuria. Feeling well, no complaints. O: See flow sheet Gen: No apparent distress Abd: Gravid, nontender S<D Growth US on 06/16/23 EFW 21st percentile, SHER normal. ASSESSMENT/PLAN: 1. 32 weeks gestation of 2. with care elsewhere, antepartum P: 1) PTL precautions reviewed and when to call 2) RTO in 2 weeks 3) Continues Prometrium for history of . 4) S<D continue to monitor. Renee Monsivais APRN.CNM documented in this encounter [facility] 06-19-2023 Instructions Carlton Valadez Cma 06/19/2023 11:03 AM EDT SEQUENTIAL SCREENINGS The [facility] offers sequential screenings for women who are interested in screenings for chromosomal abnormalities and certain defects during a . The sequential screen combines ultrasound and blood tests to determine the risk of chromosomal abnormalities, including Down's Syndrome (Trisomy 21) and Trisomy 18, as well as open neural tube defects including spina bifida. Ultrasound examination is performed between 11 weeks and 13 weeks gestational age. Blood tests are drawn after the ultrasound and again later in the between 15 and 21 weeks gestational age. Please let your physician know if you are interested in this testing. It will require an appointment with our highway traffic control technician. This is not an ultrasound performed by a physician in our office during a routine visit. SIGNS AND SYMPTOMS OF LABOR 1. Contractions every 10 minutes or more often 2. Clear, pink, or brownish fluid (water) leaking from vagina 3. Feeling that baby is pushing down, pressure 4. Low, dull backache 5. Cramps that feel like a period 6. Cramps with or without diarrhea If you notice any of the above symptoms, contact our office at [phone] and ask to speak with a nurse. After hours, you can call doctors registry at [phone] OR call [facility] at [phone] and ask to have the doctor cheese production supervisor paged. If you consider this an emergency, dial [phone] or go to your nearest emergency department. NEED HELP? Are you dealing with a violent or abusive relationship? Are you a victim of rape or sexual assult? Call [facility] ([place]) 24 hour Crisis Hotline: 854.141.1639 or 353-141-6901. MANUAL Your Guide to a Healthy manual is now on-line. Visit [email or web address] to download your free copy documented in this encounter [facility] 06-02-2023 Note HNO ID: [id number] Author: Liam Mathews MD Service: ? Author Type: Physician Type: Progress Notes Filed: 06/02/2023 1:10 PM Note Text: INITIAL OB ASSESSMENT OB Provider: Becki Hutchins RN HPI: Jyothi is a 32 year old White here to establish Obstetrical Care. Patient's last menstrual period was 11/02/2022 (exact date). from OB Dating Form. Cycles regular was unplanned but accepted Complaints: None OB History T1 L5 SAB0 IAB0 Ectopic0 Multiple0 Live Births5 # 1 - Date: 03/14/11, Sex: Male, Weight: 6 lb 6 oz (2.892 kg), GA: 37w0d, Delivery: , Low Transverse, Apgar1: None, Apgar5: None, Living: Living, Comments: Induced for oligohydramnios, FTP,CPD, preeclampsia # 2 - Date: 10/18/15, Sex: Male, Weight: 5 lb 6 oz (2.438 kg), GA: 36w0d, Delivery: Vaginal, Vacuum (Extractor), Apgar1: None, Apgar5: None, Living: Living, Comments: labor, tachycardia, maternal fever,205cc # 3 - Date: 10/18/16, Sex: Female, Weight: 4 lb 10 oz (2.098 kg), GA: 32w0d, Delivery: , Spontaneous, Apgar1: None, Apgar5: None, Living: Living, Comments: 17-OHP,Precipitous delivery,transferred to [facility] hospitalized in NICU for approximately a month # 4 - Date: 05/02/21, Sex: Female, Weight: 6 lb (2.722 kg), GA: 35w6d, Delivery: , Spontaneous, Apgar1: None, Apgar5: None, Living: Living, Comments: Covid in , Transfer from [place] for PTL 04/30/21 PTL, admitted for monitoring due to concern for arrhythmia.10-15% abrution # 5 - Date: 09/10/22, Sex: Male, Weight: 5 lb 6 oz (2.438 kg), GA: 36w6d, Delivery: , Spontaneous, Apgar1: None, Apgar5: None, Living: Living, Comments: Vaginal Progesterone during # 6 - Date: None, Sex: None, Weight: None, GA: None, Delivery: None, Apgar1: None, Apgar5: None, Living: None, Comments: None Previous history: Prior : yes x 1 History of 4th degree laceration: No History of shoulder dystocia: No History of Hypertensive disorders including pre-eclampsia, chronic hypertension or gestational hypertension: Yes Pre-E with first child History of gestational diabetes: No Patient's Risk Screening for delivery: Have you had a prior gallegos between 20w and 36w6d?: (!) Yes Did you present in active spontaneous labor or have ruptured membranes, or advanced cervical dilation (greater than or equal to 4 cm) or effacement?: (!) Yes MEDICAL/PSYCHOSOCIAL HISTORY: History of hemorrhage or bleeding concerns: No Thyroid Disease: No History of chronic hypertension: No History of pre-existing diabetes: No No results found for: ABORHD No weight on file for this encounter. History of abnormal pap: Yes Prior treatment for cervical dysplasia: none. History of STDs: None Tobacco use: No Caffeine use: Yes drinks 1 -2 cups of soda a day Drug use: No Alcohol use: No Multivitamin with Folic acid: Yes Zoroastrian or heritage: No Would refuse blood transfusion if medically necessary: No Are you currently employed? No Do you have any history of depression, anxiety, PTSD, eating disorders or other mood problems: No Do you have any safety concerns or history of traumatic events that you would like to discuss with your provider: No SDOH Screening: How often does this describe you? I don't have enough money to pay my bills: Never Within the past 12 months, have you worried that your food would run out before you had money to buy more: Never In the past 12 months, has lack of reliable transportation kept you from going to medical appointments or work, or from keeping things needed for daily living: Never In the past 12 months, have you had any concerns about having a place to live, or about the condition or quality of your housing: Never Are there any cultural or spiritual needs we should be aware of: No Depression/Anxiety Screening: denies symptoms of depression. OB Depression and Anxiety Screening- This Encounter (since 05/30/2023) None Genetic Screening: Partner present: No Patient verbalized knowledge of partner family health history: Yes Do you or your partner have any personal or family history of defects not previously discussed: No Do you have history of a complicated by anomaly, genetic condition, or demise: No ACOG Recommended Screening Screening for early gestational diabetes testing: Criteria for early testing requires elevated BMI plus one other risk factor: No weight on file for this encounter. (risk factor if > than 25 or 23 in Americans) Additional risk factors: None She does not meet ACOG criteria for early gestational DM screening. Screening for low dose aspirin use for the prevention of pre-eclampsia: Low dose aspirin should be considered if the patient has one high or two modera (more content not included)... [facility] 06-02-2023 History of Presen t illness Narrative INITIAL OB ASSESSMENT OB Provider: Becki Hutchins RN HPI: Jyothi is a 32 year old White here to establish Obstetrical Care. Patient's last menstrual period was 11/02/2022 (exact date). from OB Dating Form. Cycles regular was unplanned but accepted Complaints: None OB History T1 L5 SAB0 IAB0 Ectopic0 Multiple0 Live Births5 # 1 - Date: 03/14/11, Sex: Male, Weight: 6 lb 6 oz (2.892 kg), GA: 37w0d, Delivery: , Low Transverse, Apgar1: None, Apgar5: None, Living: Living, Comments: Induced for oligohydramnios, FTP,CPD, preeclampsia # 2 - Date: 10/18/15, Sex: Male, Weight: 5 lb 6 oz (2.438 kg), GA: 36w0d, Delivery: Vaginal, Vacuum (Extractor), Apgar1: None, Apgar5: None, Living: Living, Comments: labor, tachycardia, maternal fever,205cc # 3 - Date: 10/18/16, Sex: Female, Weight: 4 lb 10 oz (2.098 kg), GA: 32w0d, Delivery: , Spontaneous, Apgar1: None, Apgar5: None, Living: Living, Comments: 17-OHP,Precipitous delivery,transferred to [facility] hospitalized in NICU for approximately a month # 4 - Date: 05/02/21, Sex: Female, Weight: 6 lb (2.722 kg), GA: 35w6d, Delivery: , Spontaneous, Apgar1: None, Apgar5: None, Living: Living, Comments: Covid in , Transfer from [place] for PTL 04/30/21 PTL, admitted for monitoring due to concern for arrhythmia.10-15% abrution # 5 - Date: 09/10/22, Sex: Male, Weight: 5 lb 6 oz (2.438 kg), GA: 36w6d, Delivery: , Spontaneous, Apgar1: None, Apgar5: None, Living: Living, Comments: Vaginal Progesterone during # 6 - Date: None, Sex: None, Weight: None, GA: None, Delivery: None, Apgar1: None, Apgar5: None, Living: None, Comments: None Previous history: Prior : yes x 1 History of 4th degree laceration: No History of shoulder dystocia: No History of Hypertensive disorders including pre-eclampsia, chronic hypertension or gestational hypertension: Yes Pre-E with first child History of gestational diabetes: No Patient's Risk Screening for delivery: Have you had a prior gallegos between 20w and 36w6d?: (!) Yes Did you present in active spontaneous labor or have ruptured membranes, or advanced cervical dilation (greater than or equal to 4 cm) or effacement?: (!) Yes MEDICAL/PSYCHOSOCIAL HISTORY: History of hemorrhage or bleeding concerns: No Thyroid Disease: No History of chronic hypertension: No History of pre-existing diabetes: No No results found for: ABORHD No weight on file for this encounter. History of abnormal pap: Yes Prior treatment for cervical dysplasia: none. History of STDs: None Tobacco use: No Caffeine use: Yes drinks 1 -2 cups of soda a day Drug use: No Alcohol use: No Multivitamin with Folic acid: Yes Zoroastrian or heritage: No Would refuse blood transfusion if medically necessary: No Are you currently employed? No Do you have any history of depression, anxiety, PTSD, eating disorders or other mood problems: No Do you have any safety concerns or history of traumatic events that you would like to discuss with your provider: No SDOH Screening: How often does this describe you? I don't have enough money to pay my bills: Never Within the past 12 months, have you worried that your food would run out before you had money to buy more: Never In the past 12 months, has lack of reliable transportation kept you from going to medical appointments or work, or from keeping things needed for daily living: Never In the past 12 months, have you had any concerns about having a place to live, or about the condition or quality of your housing: Never Are there any cultural or spiritual needs we should be aware of: No Depression/Anxiety Screening: denies symptoms of depression. OB Depression and Anxiety Screening- This Encounter (since 05/30/2023) None Genetic Screening: Partner present: No Patient verbalized knowledge of partner family health history: Yes Do you or your partner have any personal or family history of defects not previously discussed: No Do you have history of a complicated by anomaly, genetic condition, or demise: No ACOG Recommended Screening Screening for early gestational diabetes testing: Criteria for early testing requires elevated BMI plus one other risk factor: No weight on file for this encounter. (risk factor if > than 25 or 23 in Americans) Additional risk factors: None She does not meet ACOG criteria for early gestational DM screening. Screening for low dose aspirin use for the prevention of pre-eclampsia: Low dose aspirin should be considered if the patient has one high or two moderate risk factors: High risk factors: preeclampsia after of 1st child Moderate risk ractors: None Not currently taking low dose ASA Marital Status:Committed relationship Partner: Name: Michael Dixon Age: 32 Occupation: [employer] 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 progesterone micronized (PROMETRIUM) 200 mg capsule No current facility-administered medications for this visit. 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 progesterone micronized (PROMETRIUM) 200 mg capsule No current facility-administered medications for this visit. Allergies As of Date: 06/02/2023 (No Known Allergies) Fully Assessed 06/02/2023 Does patient have penicillin allergy: No REVIEW OF SYSTEMS: GENERAL: Negative for: Fever or Chills HEENT: Negative for: Headache, Impaired Vision, Ringing in Ears, Nosebleeds NECK: Negative for: Swelling, Pain, Stiffness RESPIRATORY: Negative for: Cough, Shortness of breath, Wheezing GASTROINTESTINAL: Negative for: Heartburn, Constipation, Diarrhea, Blood in stool, Vomiting MUSCULOSKELETAL: Negative for: Muscle or joint pain, stiffness, Joint swelling NEUROLOGIC/PSYCHIATRIC: Negative for: Weakness, Paralysis, Numbness, Tingling, Tremor, Anxiety, Depression, Memory loss SKIN: Negative for: Rash, Itching GENITOURINARY: Negative for: vaginal itching, vaginal discharge, hematuria or dysuria PHYSICAL EXAM: BP 100/60 Ht 5' 4 (1.63m) Wt 125 lb 9.6 oz (57.0kg) LMP 11/02/2022 BMI 21.55 kg/(m^2). GENERAL: pleasant in no apparent distress DERMATOLOGY: Normal, without lesions, non-icteric, and non-hirsute NECK: full range of motion CHEST: Normal inspiratory effort ABDOMEN: soft, non-tender, and no masses NEURO: exam grossly non-focal Limited OB ultrasound exam: +FHT on doppler OB Risk Screening: Completed, positive findings include: Patient answered 'Yes' they had a prior gallegos between 20w and 36w6d. ASSESSMENT: 32 year old at 30w2d wks gestational age PLAN: 1) Patient oriented to practice. Patient given new OB orientation folder. Discussed nutrition, folic acid supplementation, dietary guidelines, exercise, smoking, alcohol, caffeine, and drug use. Discussed gestational weight gain guidelines. OB Community care order placed. See problem list. Follow up in 2 weeks or sooner prn. Liam Mathews DO documented in this encounter [facility] 06-02-2023 Instructions Gillian López MA - 06/02/2023 8:58 AM EDT Please select the following link to access the [facility] Your Guide to a Healthy . [email or web address] documented in this encounter [facility] 05-31-2023 Note HNO ID: [id number] Author: Becki Hutchins RN Service: ? Author Type: ? Type: Progress Notes Filed: 05/31/2023 5:51 PM Note Text: INITIAL OB ASSESSMENT OB Provider: Becik Hutchins RN HPI: Jyothi is a 32 year old White here to establish Obstetrical Care. Patient's last menstrual period was 11/02/2022 (exact date). from OB Dating Form. Cycles regular was unplanned but accepted Complaints: None OB History T1 L5 SAB0 IAB0 Ectopic0 Multiple0 Live Births5 # 1 - Date: 03/14/11, Sex: Male, Weight: 6 lb 6 oz (2.892 kg), GA: 37w0d, Delivery: , Low Transverse, Apgar1: None, Apgar5: None, Living: Living, Comments: Induced for oligohydramnios, FTP,CPD, preeclampsia # 2 - Date: 10/18/15, Sex: Male, Weight: 5 lb 6 oz (2.438 kg), GA: 36w0d, Delivery: Vaginal, Vacuum (Extractor), Apgar1: None, Apgar5: None, Living: Living, Comments: labor, tachycardia, maternal fever,205cc # 3 - Date: 10/18/16, Sex: Female, Weight: 4 lb 10 oz (2.098 kg), GA: 32w0d, Delivery: , Spontaneous, Apgar1: None, Apgar5: None, Living: Living, Comments: 17-OHP,Precipitous delivery,transferred to [facility] hospitalized in NICU for approximately a month # 4 - Date: 05/02/21, Sex: Female, Weight: 6 lb (2.722 kg), GA: 35w6d, Delivery: , Spontaneous, Apgar1: None, Apgar5: None, Living: Living, Comments: Covid in , Transfer from [place] for PTL 04/30/21 PTL, admitted for monitoring due to concern for arrhythmia.10-15% abrution # 5 - Date: 09/10/22, Sex: Male, Weight: 5 lb 6 oz (2.438 kg), GA: 36w6d, Delivery: , Spontaneous, Apgar1: None, Apgar5: None, Living: Living, Comments: Vaginal Progesterone during # 6 - Date: None, Sex: None, Weight: None, GA: None, Delivery: None, Apgar1: None, Apgar5: None, Living: None, Comments: None Previous history: Prior : yes x 1 History of 4th degree laceration: No History of shoulder dystocia: No History of Hypertensive disorders including pre-eclampsia, chronic hypertension or gestational hypertension: Yes Pre-E with first child History of gestational diabetes: No Patient's Risk Screening for delivery: Have you had a prior gallegos between 20w and 36w6d?: (!) Yes Did you present in active spontaneous labor or have ruptured membranes, or advanced cervical dilation (greater than or equal to 4 cm) or effacement?: (!) Yes MEDICAL/PSYCHOSOCIAL HISTORY: History of hemorrhage or bleeding concerns: No Thyroid Disease: No History of chronic hypertension: No History of pre-existing diabetes: No No results found for: ABORHD No weight on file for this encounter. History of abnormal pap: Yes Prior treatment for cervical dysplasia: none. History of STDs: None Tobacco use: No Caffeine use: Yes drinks 1 -2 cups of soda a day Drug use: No Alcohol use: No Multivitamin with Folic acid: Yes Zoroastrian or heritage: No Would refuse blood transfusion if medically necessary: No Are you currently employed? No Do you have any history of depression, anxiety, PTSD, eating disorders or other mood problems: No Do you have any safety concerns or history of traumatic events that you would like to discuss with your provider: No SDOH Screening: How often does this describe you? I don't have enough money to pay my bills: Never Within the past 12 months, have you worried that your food would run out before you had money to buy more: Never In the past 12 months, has lack of reliable transportation kept you from going to medical appointments or work, or from keeping things needed for daily living: Never In the past 12 months, have you had any concerns about having a place to live, or about the condition or quality of your housing: Never Are there any cultural or spiritual needs we should be aware of: No Depression/Anxiety Screening: denies symptoms of depression. OB Depression and Anxiety Screening- This Encounter (since 05/30/2023) None Genetic Screening: Partner present: No Patient verbalized knowledge of partner family health history: Yes Do you or your partner have any personal or family history of defects not previously discussed: No Do you have history of a complicated by anomaly, genetic condition, or demise: No ACOG Recommended Screening Screening for early gestational diabetes testing: Criteria for early testing requires elevated BMI plus one other risk factor: No weight on file for this encounter. (risk factor if > than 25 or 23 in Americans) Additional risk factors: None She does not meet ACOG criteria for early gestational DM screening. Screening for low dose aspirin use for the prevention of pre-eclampsia: Low dose aspirin should be considered if the patient has one high or two moderate risk fa (more content not included)... [facility] 05-01-2023 Miscellaneous Notes Opened in error documented in this encounter [facility] 05-04-2021 History of Presen t illness Narrative Pt discharged home with on her lap in carseat. Pt in stable condition. Images from the original note were not included. POST DAY # 2 Jyothi Alves, 30 y.o. This patient was seen & examined today. Her was complicated by: Patient Active Problem List Diagnosis Abnormality in heart rate/rhythm, antepartum (spontaneous vaginal delivery) Today she is doing well without any chief complaint. Her lochia is light. She denies chest pain, shortness of breath, headache and lightheadedness. She is ambulating well. She is tolerating solids. Patient would like to go home today. Vital Signs: Vitals: 05/02/21 1554 05/02/21 2133 05/03/21 0803 05/03/21 195 BP: (!) 95/58 100/63 101/70 101/64 Pulse: 80 72 80 66 Resp: 16 20 17 16 Temp: 98.1 F (36.7 C) 97.6 F (36.4 C) 98.3 F (36.8 C) 97 F (36.1 C) TempSrc: Temporal Temporal Temporal Temporal SpO2: 99% 98% 97% 98% Weight: Height: Physical Exam: General: no apparent distress, alert and cooperative Affect: appropriate Lungs: No increased work of breathing, good air exchange Abdomen: abdomen soft, non-distended, non-tender Fundus: non-tender, normal size, firm, below umbilicus Extremities: no calf tenderness, non edematous Lab: Lab Results Component Value Date HGB 12.0 05/02/2021 Lab Results Component Value Date HCT 34.8 (L) 05/02/2021 A POS Antibody Screen: Antibody Screen Date Value Ref Range Status 05/01/2021 NEG NA Final Lab Results Component Value Date RUBELLAIGG 5.5 05/01/2021 LABOR DELIVERY ??? SCD's ONLY (labor through ambulation) SCD's PLUS Prophylactic Anticoagulation until discharge SCD's PLUS Prophylactic Anticoagulation for 6 weeks SCD's PLUS Therapeutic Anticoagulation for 6 weeks Vaginal Delivery [] BMI ? 40 kg/m2 Delivery All patients Vaginal Delivery [] BMI ? 40 kg/m2 AND [] Antepartum hospitalization ? 72 hours within the past month Delivery 1 Major Risk Factor: [] BMI ? 35 kg/m2 [] Low Risk Thrombophilia [] PPH+RBCs, IR, or operation [] Infection+Antibiotics [] Antepartum hospitalization ? 72 hours within the past month [] PMH: Sickle Cell, SLE, Cardiac Dz, Active IBD, Active Cancer, Nephrotic Syndrome OR 2 Minor Risk Factors: [] Multiple gestation [] Age > 40 [] PPH ? 1,000cc [] (+)FMH of VTE [] Smoker [] Preeclampsia [] BMI ? 40 kg/m2 AND [] Low Risk Thrombophilia OR ANY OF THE FOLLOWING: [] High Risk Thrombophilia without prior VTE [] Low Risk Thrombophilia with (+)FMH of VTE [] Any single prior VTE ANY OF THE FOLLOWING: [] Already on LMWH/UFH [] Multiple prior VTE [] High Risk Thrombophilia with prior VTE Low Risk Thrombophilia: FVL (heterozygous), Prothrombin (heterozygous), Protein C, Protein S High Risk Thrombophilia: FVL (homozygous), Prothrombin (homozygous), FVL+Prothrombin (heterozygous), Antithrombin III, APLS Assessment/Plan: Jyothi Alves is PPD # 2 s/p 1. Care - Doing well, VSS - Female - Both breast and bottle - Contraception: Per Private Attending - Encourage ambulation - VTE Prophylaxis: Not Indicated 2. Hx of COVID in Positive 12/16/20 Asymptomatic 3. 10-15% abruption Negative abruption labs prior to delivery Hgb stable 12 4. Non-persistent severe range BP One severe BP 128/114 @1224 on 05/02/21 right before delivery, possibly inaccurate due to shaking Normotensive to hypotensive since delivery Asymptomatic 5. Disposition: Anticipate discharge today per private attending's discretion. Based on my clinical assessment, this patient is safe for self discharge (does not need transport by wheelchair) if she so chooses. Provider's Name: MD AUSTEN Son DO 05/04/2021, 5:32 AM ATTENDING NOTE: I personally saw and evaluated the patient. I reviewed the care provided by the resident/ PA/ TRANSFORMER SHOP SUPERVISOR including the patient's medical history, physical exam findings, diagnosis and treatment plan. I also agree with the documentation from the resident /PA /TRANSFORMER SHOP SUPERVISOR unless otherwise indicated: Doing well. Ok for d/c. Pt plans on getting an interval BTL. --- Total time spent discharging the patient was less than 30 minutes, of which greater than 50% of the time was spent counseling and coordinating care. Images from the original note were not included. POST DAY # 1 Jyothi Alves, 30 y.o. This patient was seen & examined today. Her was complicated by: Patient Active Problem List Diagnosis Abnormality in heart rate/rhythm, antepartum (spontaneous vaginal delivery) Today she is doing well without any chief complaint. Her lochia is light. She denies chest pain, shortness of breath, headache and lightheadedness. She is ambulating well. She is tolerating solids. Vital Signs: Vitals: 05/02/21 1442 05/02/21 1458 05/02/21 1554 05/02/21 2133 BP: (!) 96/56 (!) 92/46 (!) 95/58 100/63 Pulse: 70 95 80 72 Resp: 16 20 Temp: 98.1 F (36.7 C) 97.6 F (36.4 C) TempSrc: Temporal Temporal SpO2: 99% 98% Weight: Height: Physical Exam: General: no apparent distress, alert and cooperative Affect: appropriate Lungs: No increased work of breathing, good air exchange Abdomen: abdomen soft, non-distended, non-tender Fundus: non-tender, normal size, firm, below umbilicus Extremities: no calf tenderness, non edematous Lab: Lab Results Component Value Date HGB 12.0 05/02/2021 Lab Results Component Value Date HCT 34.8 (L) 05/02/2021 A POS Antibody Screen: Antibody Screen Date Value Ref Range Status 05/01/2021 NEG NA Final Lab Results Component Value Date RUBELLAIGG 5.5 05/01/2021 LABOR DELIVERY ??? SCD's ONLY (labor through ambulation) SCD's PLUS Prophylactic Anticoagulation until discharge SCD's PLUS Prophylactic Anticoagulation for 6 weeks SCD's PLUS Therapeutic Anticoagulation for 6 weeks Vaginal Delivery [] BMI ? 40 kg/m2 Delivery All patients Vaginal Delivery [] BMI ? 40 kg/m2 AND [] Antepartum hospitalization ? 72 hours within the past month Delivery 1 Major Risk Factor: [] BMI ? 35 kg/m2 [] Low Risk Thrombophilia [] PPH+RBCs, IR, or operation [] Infection+Antibiotics [] Antepartum hospitalization ? 72 hours within the past month [] PMH: Sickle Cell, SLE, Cardiac Dz, Active IBD, Active Cancer, Nephrotic Syndrome OR 2 Minor Risk Factors: [] Multiple gestation [] Age > 40 [] PPH ? 1,000cc [] (+)FMH of VTE [] Smoker [] Preeclampsia [] BMI ? 40 kg/m2 AND [] Low Risk Thrombophilia OR ANY OF THE FOLLOWING: [] High Risk Thrombophilia without prior VTE [] Low Risk Thrombophilia with (+)FMH of VTE [] Any single prior VTE ANY OF THE FOLLOWING: [] Already on LMWH/UFH [] Multiple prior VTE [] High Risk Thrombophilia with prior VTE Low Risk Thrombophilia: FVL (heterozygous), Prothrombin (heterozygous), Protein C, Protein S High Risk Thrombophilia: FVL (homozygous), Prothrombin (homozygous), FVL+Prothrombin (heterozygous), Antithrombin III, APLS Assessment/Plan: Jyotih Alves is PPD # 1 s/p 1. Care - Doing well, VSS - Female - Both breast and bottle - Contraception: Per Private Attending - Encourage ambulation - VTE Prophylaxis: Not Indicated 2. Hx of COVID in Positive 12/16/20 Asymptomatic 3. 10-15% abruption Negative abruption labs prior to delivery Hgb stable 12 4. Non persistent severe range BP One severe BP 128/114 @1224 on 05/02/21 right before delivery, possibly inaccurate due to shaking Normotensive to hypotensive since delivery Asymptomatic 5. Disposition: Continue current care. Based on my clinical assessment, this patient is safe for self discharge (does not need transport by wheelchair) if she so chooses. Provider's Name: MD AUSTEN Son, DO 05/03/2021, 5:41 AM Attestation Statement I saw and evaluated the patient. I agree with the findings and plans of the resident physician, and agree as documented in her note . Doing well PPD#2, no complaints. Meeting PP milestones. Continue current management and anticipate d/c PPD#2. I spent 15 minutes in the visit, with more than 50% of the total [id number] time of the visit in counseling/coordination of care. Nutrition rescreen completed. Chart reviewed. Patient to be monitored and followed by the diet police service technician. Images from the original note were not included. . Labor Progress Note Date: 05/02/2021 Time: 8:13 AM Subjective: Jyothi Alves is a 30 y.o. female at 35w6d: - Suspected arrhythmia - Hx CD, x2 - Hx PTB - COVID in Cx:/-1 FHP:defer FHT: Cat II Verdel:q5min A/P: 1. Active. Called into room 2/2 patient discomfort. FHT Cat II for intermittent variable decelerations, overall moderate variability reassuring. Made change from 1--> 3cm @0600, SVE now made change to 5cm. OK for epidural, currently requesting. Discussed with Dr. Norman, patient signed out to [facility] with [facility], Dr. Jacobo updated over phone and in house. TOLAC consent signed with patient. Vaginal bleeding currently stable, will continue to monitor. Coags wnl this AM. Blood pressures normotensive. SVE per RN at this time, patient now 7cm. Epidural in place. FHT Cat II for variable decelerations, overall moderate variability reassuring. Intact. Will continue to monitor. Cat II for moderate variability and accells with intermittent late decels. Continues to have suspected PVC on monitor reviewed with Dr Norman. Continue conservative interventions at this time. SVE 9-10/90/-1 per RN due to increased rectal pressure. Patient still intact. Cat II for intermittent late decels, inaccurate intermittent bradycardia due to PVCs, baseline of 125, moderate variability, spon accels present. Fluid bolus still running. Dr. Jacobo updated via text. Patient delivered 05/02/21. Images from the original note were not included. Maternal Medicine Service Resident Progress Note 05/02/2021 6:51 AM 04/30/2021 Hospital Day: 3 Jyothi Alves, 30 y.o. 35w6d Patient has been seen and examined. Pt complains of vaginal bleeding this AM after using bathroom, bedside exam performed by myself and Dr. Frazier. Approximately 10cc bright blood in toilet. Patient denies cramping/pelvic pain. Positive movement Positive vaginal bleeding Negative LOF Negative Contractions Vitals: 05/01/21 0045 05/01/21 0848 05/01/21 1606 05/01/21 1948 BP: 98/65 101/63 (!) 89/51 (!) 94/58 Pulse: 76 80 76 83 Resp: 18 18 16 16 Temp: 99 F (37.2 C) 97.9 F (36.6 C) 98.1 F (36.7 C) 98.7 F (37.1 C) TempSrc: Temporal Oral Temporal SpO2: 99% 98% 94% Weight: Height: FHT: 140, moderate variability Accels: present Decels: 2x 3min decelerations around 0245 overnight Contractions: none Physical Exam: Gen: NAD HEENT: Normocephalic, Atraumatic, EOMI, MMM Resp: CTABL, no WRR Card: RRR S1S2 Abd: soft, gravid, NTND, no rebound, no guarding. negative fundal tenderness : SVE changed from 1cm to 3cm, slow trickle of blood from cervix Ext: No LE edema, no calf tenderness or swelling Medications: Current Facility-Administered Medications Medication Dose Route Frequency Provider Last Rate Last Admin lactated ringers infusion IntraVENous Continuous Anna Frazier, DO 100 mL/hr at 05/02/21 0645 New Bag at 05/02/21 0645 sodium chloride flush 0.9 % injection 10 mL 10 mL IntraVENous 2 times per day Jennifer Gonzalez, DO 10 mL at 05/01/21 1952 sodium chloride flush 0.9 % injection 10 mL 10 mL IntraVENous PRN Jennifer C Rileyari, DO 10 mL at 05/02/21 0442 0.9 % sodium chloride infusion 25 mL IntraVENous PRN Jennifer C Rileyari, DO ondansetron (ZOFRAN-ODT) disintegrating tablet 4 mg 4 mg Oral Q8H PRN Jennifer Joan Gonzalez, DO Or ondansetron (ZOFRAN) injection 4 mg 4 mg IntraVENous Q6H PRN Jennifer C Rileyari, DO acetaminophen (TYLENOL) tablet 650 mg 650 mg Oral Q4H PRN Jennifer C Lamari, DO Or acetaminophen (TYLENOL) suppository 650 mg 650 mg Rectal Q4H PRN Jennifer C Lamari, DO vitamin 27-1 MG tablet 1 tablet 1 tablet Oral Daily Jennifer C Lisa, DO 1 tablet at 05/01/21 1024 docusate sodium (COLACE) capsule 100 mg 100 mg Oral BID PRN Jenniferlili Gonzalez, DO Assessment/Plan: Jyothi Alves is a 30 y.o. female 35w6d Suspected arrhythmia - Transport from [place] given irregular FHR concerning for PAC - Cardiac rhythm visually apparent on BSUS - FHT with moderate variability and accels - Genetic screening negative during this - echo on Monday if remains - Daily bedside BPP over the weekend - NSTtid for EFM Vaginal bleeding - C/o 10cc bright blood in toilet this AM - SSE performed by Dr. Frazier, 5 gamble swabs no bleeding with valsalva - SVE changed from 1cm to 3/70/-3 - Will obtain coags to r/o abruption and continue to monitor bleeding if becomes severe will consider RCD - Can consider AOL for TOLAC if bleeding stable - Consent signed for RCD and BTL - S/p BMZ #2 Hx CD - Arrest of descent in G1 - G2 and G3 at 36 and 33w 2/2 PTL - Patient desires TOLAC with calculator 92% Hx PTB - G2 and G3 at 36 and 33w 2/2 PTL - Not on progesterone this Covid in - Positive 12/16/20 - Currently asx IUP @ 35w6d - Dating by 8w US - Cephalic on 04/30 - Monitoring:NSTtid - Diet:NPO - BMZ x2 on 04/30-05/01 Further plan pending d/w attending. Anders Callejas DO 05/02/2021, 6:51 AM Associated attestation - Wero Norman MD - 05/02/2021 11:02 AM EDT Maternal Medicine Attending Attestation: I have performed a history and physical examination on the patient and discussed the management with the residents physician. I reviewed and agree with the findings and plan as documented in the note. 30 y.o. at 35w6d with arrythmia. She is active labor. Plan: Epidural Anticipate () evaluation regarding the PAC's I spent 15 minutes at the visit, with more than 50% of the total face to face time of the visit in counseling and coordination of care. Wero Norman MD BPP performed at bedside and 04/11. Fetus noted to have hiccups during exam. NST reactive although Cat II with intermittent variable decels. Overall reassuring with both moderate variability and accels. Decels did not occur while I was at the bedside, but RN states audible decels noted and did not sound like maternal HR. Will keep on monitor for now and continue to assess. Patient otherwise feeling well with no complaints at this time. Images from the original note were not included. Maternal Medicine Service Resident Progress Note 05/01/2021 5:26 AM 04/30/2021 Hospital Day: 2 Jyothi Alves, 30 y.o. 35w5d Patient has been seen and examined. Pt has no complaints this morning. Positive movement Negative vaginal bleeding Negative LOF Negative Contractions Vitals: 04/30/21 2329 05/01/21 0045 BP: 98/65 Pulse: 76 Resp: 18 Temp: 99 F (37.2 C) SpO2: 99% Weight: 125 lb (56.7 kg) Height: 5' 4 (1.626 m) FHT: 120, moderate variability Accels: present Decels: possible decels vs arrhythmia, HR in the 50's-90's at times Contractions: none Physical Exam: Gen: NAD HEENT: Normocephalic, Atraumatic, EOMI, MMM Resp: CTABL, no WRR Card: RRR S1S2 Abd: soft, gravid, NTND, no rebound, no guarding. negative fundal tenderness Ext: No LE edema, no calf tenderness or swelling Medications: Current Facility-Administered Medications Medication Dose Route Frequency Provider Last Rate Last Admin sodium chloride flush 0.9 % injection 10 mL 10 mL IntraVENous 2 times per day Jennifer Gonzalez, DO 10 mL at 05/01/21 0115 sodium chloride flush 0.9 % injection 10 mL 10 mL IntraVENous PRN Jennifer C Lamari, DO 0.9 % sodium chloride infusion 25 mL IntraVENous PRN Jennifer C Lamari, DO ondansetron (ZOFRAN-ODT) disintegrating tablet 4 mg 4 mg Oral Q8H PRN Jennifer C Lamari, DO Or ondansetron (ZOFRAN) injection 4 mg 4 mg IntraVENous Q6H PRN Jennifer C Lamari, DO acetaminophen (TYLENOL) tablet 650 mg 650 mg Oral Q4H PRN Jennifer C Lamari, DO Or acetaminophen (TYLENOL) suppository 650 mg 650 mg Rectal Q4H PRN Jennifer C Lamari, DO vitamin 27-1 MG tablet 1 tablet 1 tablet Oral Daily Jennifer C Lamari, DO docusate sodium (COLACE) capsule 100 mg 100 mg Oral BID PRN Jennifer C Lamari, DO betamethasone acetate-betamethasone sodium phosphate (CELESTONE) injection 12 mg 12 mg IntraMUSCular Once Jennifer C Lamari, DO Assessment/Plan: Jyothi Alves is a 30 y.o. female 35w5d Suspected arrhythmia - Transport from [place] given irregular FHR concerning for PAC - Cardiac rhythm visually apparent on BSUS - FHT with moderate variability and accels - Genetic screening negative during this - Plan for echo on Monday - Daily bedside BPP over the weekend - NSTtid for EFM Hx CD - Arrest of descent in G1 - G2 and G3 at 36 and 33w 2/2 PTL - Patient desires TOLAC with calculator 92% Hx PTB - G2 and G3 at 36 and 33w 2/2 PTL - Not on progesterone this Covid in - Positive 12/16/20 - Currently asx IUP @ 35w5d - Dating by 8w - Cephalic on 04/30 - Monitoring:NSTtid - Diet:General - BMZ x1 on 04/30 @1557 Further plan pending d/w attending. Rhiannon Rutledge MD 05/01/2021, 5:26 AM Associated attestation - Wero Norman MD - 05/01/2021 6:09 PM EDT Maternal Medicine Attending Attestation: I have performed a history and physical examination on the patient and discussed the management with the residents physician. I reviewed and agree with the findings and plan as documented in the note. 30 y.o. at 35w5d with arrhythmia. The patient denies nausea, vomiting, vaginal bleeding, leakage of fluid, contractions, and/or abdominal pain. She also denies blurring of vision, visual disturbances, headaches, and /or epigastric pain. She reports the fetus to be active. Vitals: 04/30/21 2329 05/01/21 0045 05/01/21 0848 BP: 98/65 101/63 Pulse: 76 80 Resp: 18 18 Temp: 99 F (37.2 C) 97.9 F (36.6 C) TempSrc: Temporal SpO2: 99% 98% Weight: 125 lb (56.7 kg) Height: 5' 4 (1.626 m) EFM shows periods of category I with accelerations. The baseline line FHR is 120 to 130. Accelerations are noted. Periods of irregular heart rate are noted. Bedside US: Premature atrial contractions are noted by Doppler evaluation (intracardiac and umbilical artery) No hydrops BPP = 8/8 done earlier. Recommendations: Avoid caffeine (she drinks Pepsi). PAC's could lead to supraventricular tachycardia in 2 % of the time that could lead to hydrops Will watch in the hospital and get a echocardiogram in the heart center. I spent 30 minutes at the visit, with more than 50% of the total face to face time of the visit in counseling and coordination of care. Wero Norman MD documented in this encounter [facility] Work Phone: 05-04-2021 Note Department of Obstet rics and Gynecology Delivery Discharge Summary Admission on 04/30/2021 10:58 PM ? Reason for Hospitalization: Transfer from [place] 04/30/21, admitted for monitoring due to concern for arrhythmia. Seen in [place] for tPTL. ? Intrapartum Course: Patient had VB 05/02/21 with cervical change from 1cm prior to admission to 3cm. Pt became increasingly uncomfortable throughout the day and continued to make change on her own. Her labor course was augmented with AROM when complete, and pt felt the urge to push resulting in uncomplicated . Surgical Operations & Procedures: Date of delivery: 05/02/21 Procedure: spontaneous vaginal Anesthesia: Epidural anesthesia Laceration(s): none Delivery Complications: none; abruptio placentae and PTL prior to delivery EBL: 200 cc Pertinent Findings & Procedures: Information for the patient's : Mario Alves [[id number]] female Weight: 5 lb 6.8 oz (2.46 kg) Apgars: Information for the patient's : Mario Alves [[id number]] One Minute : 5 Five Minute : 7 Course: Uncomplicated : Live female Blood Type/Rh: A POS Antibody Screen: Antibody Screen Date Value Ref Range Status 05/01/2021 NEG NA Final Rubella: Lab Results Component Value Date RUBELLAIGG 5.5 05/01/2021 Contraception: plans BTL : no VTE Prophylaxis: Not Indicated Home Meds: Jyothi Alves Home Medication Instructions CARROL:[id number] Printed on:05/03/21 0859 Medication Information MV-Min-Fe Fum-FA-DHA ( 1 PO) Take 1 tablet by mouth daily Meds at Discharge: Medication List START taking these medications ibuprofen 600 MG tablet Commonly known as: ADVIL;MOTRIN Take 1 tablet by mouth every 6 hours as needed for Pain CONTINUE taking these medications 1 PO Where to Get Your Medications These medications [facility] to [id number] - [address] [phone] - [phone] [place] [id number] ? ibuprofen 600 MG tablet Activity: Activity as tolerated Diet: Regular diet Follow-up Appointments: _x_ visit _ _ incision check _ _ blood pressure check _ _ blood sugar check/ 2-hr GTT _ _ depression screen _ _ other: Condition on discharge: Stable Discharge to: Home Discharge date: 05/04/21 Discharge Dx: 1. S/p at 35w6d 2. Placental abruption 3. labor/delivery 4. Hx of COVID in Maternal care for abnormalities of the heart rate or rhythm, unspecified trimester, not applicable or unspecified [O36.8390] Patient Active Problem List Diagnosis ? Abnormality in heart rate/rhythm, antepartum ? (spontaneous vaginal delivery) Comments: Home care, Follow-up care and control were reviewed. Signs and symptoms of mastitis and Depression were reviewed. The patient is to notify her physician if any of these occur. [facility] 05-04-2021 Hospital course Narrative Images from the original note were not included. Department of Obstetrics and Gynecology Delivery Discharge Summary Admission on 04/30/2021 10:58 PM Reason for Hospitalization: Transfer from [place] 04/30/21, admitted for monitoring due to concern for arrhythmia. Seen in [place] for tPTL. Intrapartum Course: Patient had VB 05/02/21 with cervical change from 1cm prior to admission to 3cm. Pt became increasingly uncomfortable throughout the day and continued to make change on her own. Her labor course was augmented with AROM when complete, and pt felt the urge to push resulting in uncomplicated . Surgical Operations & Procedures: Date of delivery: 05/02/21 Procedure: spontaneous vaginal Anesthesia: Epidural anesthesia Laceration(s): none Delivery Complications: none; abruptio placentae and PTL prior to delivery EBL: 200 cc Pertinent Findings & Procedures: Information for the patient's : Mario Alves [[id number]] female Weight: 5 lb 6.8 oz (2.46 kg) Apgars: Information for the patient's : Mario Alves [[id number]] One Minute : 5 Five Minute : 7 Course: Uncomplicated Infant: Live female infant Blood Type/Rh: A POS Antibody Screen: Antibody Screen Date Value Ref Range Status 05/01/2021 NEG NA Final Rubella: Lab Results Component Value Date RUBELLAIGG 5.5 05/01/2021 Contraception: plans BTL : no VTE Prophylaxis: Not Indicated Home Meds: Jyothi Alves Home Medication Instructions CARROL:[id number] Printed on:05/03/21 0846 Medication Information MV-Min-Fe Fum-FA-DHA ( 1 PO) Take 1 tablet by mouth daily Meds at Discharge: Medication List START taking these medications ibuprofen 600 MG tablet Commonly known as: ADVIL;MOTRIN Take 1 tablet by mouth every 6 hours as needed for Pain CONTINUE taking these medications 1 PO Where to Get Your Medications These [id number] [address] [facility] - P [phone] - F [phone] [address] [facility] [id number] ibuprofen 600 MG tablet Activity: Activity as tolerated Diet: Regular diet Follow-up Appointments: _x_ visit _ _ incision check _ _ blood pressure check _ _ blood sugar check/ 2-hr GTT _ _ depression screen _ _ other: Condition on discharge: Stable Discharge to: Home Discharge date: 05/04/21 Discharge Dx: 1. S/p at 35w6d 2. Placental abruption 3. labor/delivery 4. Hx of COVID in Maternal care for abnormalities of the heart rate or rhythm, unspecified trimester, not applicable or unspecified [O36.8390] Patient Active Problem List Diagnosis Abnormality in heart rate/rhythm, antepartum (spontaneous vaginal delivery) Comments: Home care, Follow-up care and control were reviewed. Signs and symptoms of mastitis and Depression were reviewed. The patient is to notify her physician if any of these occur. documented in this encounter [facility] Work Phone: 05-03-2021 Hospital Discharg e Jessica Parekh PA-C - 05/03/2021 Images from the original note were not included. After Your Delivery (the Period): Your Care Instructions Thank you for allowing us to care of you at [facility]. This time can be one of many emotional ups and downs and many changes in your life. In these first weeks try to take good care of yourself because you will likely feel very tired. It may take 4 to 6 weeks to feel like yourself again, and possibly longer if you had a . FOLLOW-UP: Your follow-up care is a xavier part of your treatment and safety. Follow-up with your OB providerin 4 weeks or as specified by your OB provider. If you had high blood pressure, visit your OB provider within 3-5 days after being home. Most women's blood pressure will return to pre- levels after delivery. However, some patients continue to have problems with their blood pressure, and some even get worse. Very high blood pressure can lead to seizures or stroke which can be life threatening. If ordered by your provider, take your blood pressure at home and call your OB provider if you have a high reading. Your OB provider can write you a prescription for a blood pressure monitor if you do not have one. Be sure to make and go to all appointments, and call your OB provider if you are having problems. It's also a good idea to know your test results and keep a list of the medicines you take. BLEEDING Vaginal bleeding will decrease in amount over the next few weeks. Bleeding may apple picker and then decrease again around 7-10 days . Use pads instead of tampons for the bloody flow that may last as long as 2 weeks. You will notice that as your activity increases, your flow may increase. Call your provider if you are saturating one maxi pad in an hour & passing large clots for 3 hours or more. ACTIVITY NO SEXUAL activity for 6 weeks or until advised by your OB provider; Nothing in vagina: intercourse, tampons, or douching. Begin to think about your reproductive life plan. Talk to your OB provider about if and when you would like another baby in the future. The recommendation for safe spacing is 18-24 months. Showering is okay; NO tub baths, swimming, or hot tubs. Gradually increase your activity. Resume exercise regimen only after advised by your )OB provider. Avoid lifting anything heavier than ten pounds or a gallon of milk for six weeks. Avoid driving 1 week for vaginal delivery and 2 weeks for section, or longer if you are on prescription pain medicine unless otherwise instructed by your OB provider . Rise slowly from a lying to sitting and then a standing position. Climb stairs carefully. You may feel tired or have a lack of energy. You may continue your vitamin to replenish nutrients post-delivery. Nap when whenever you can to catch up on sleep. EMOTIONS You may feel navarro, sad, teary, & overwhelmed for the first 2 weeks ; however, feelings of depression may occur any time within the first year after delivery. Contact your OB provider if you feel you may be showing signs of depression, or have thoughts of harming yourself or or anyone.. WOUND CARE For Vaginal Delivery: Shower daily, and cleanse your perineum (bottom) with mild soap from front to back. Use the plastic squirt bottle until bleeding stops each time you use the restroom instead of wiping with toilet paper. Ease soreness of hemorrhoids and the area between your vagina and rectum with ice compresses or witch hue pads. If used, stitches will dissolve in 4-6 weeks on their own. You may use a sitz bath or soak in a clean tub with drain open and water running for comfort. Kegel exercises will help restore bladder control. To do these tighten your muscles as if you were stopping your urine flow. Hold for a few seconds and then relax. Do these throughout the day. For Section Delivery: Keep your incision clean and dry. If you had steri-strips you may remove these once they start falling off. If you have get they need to be removed 3-10 daysafter delivery. If you have steri-strips, remove after 7 - 10 days. Do not wear clothing that irritates the incision line. If your incision is in a crease that is not dry, use a hair-dryer to dry the area 3 times a day. If you develop fever, shaking chills, redness, swelling, drainage or discharge from your wound, or if your wound looks like it is coming apart call your provider immediately. BREAST CARE If you develop a warm, red, tender area on your breast or develop a fever contact your OB provider. If your breasts become engorged ask your provider because treatment can vary according to your needs. DIET & CONSTIPATION Eat a well-balanced diet focusing on foods high in fiber and protein such as: whole grain cereals and breads, fruits and vegetables and legumes (eg, beans, lentils) Drink 8-10 glasses of fluids daily, especially water. Limit caffeine. To avoid constipation you may take a mild kfid-lhv-gjazhnj stool softener (such as colace) as recommended by your OB provider. SWELLING Try to keep your legs elevated when you are sitting or lying down. Stay hydrated and take walks. If you had high blood pressure, weigh yourself at the same time each day. Write down your weight and take the record to your OB provider appointment. MEDICATIONS Take all medications prescribed for you exactly as ordered. Don't take any drugs not prescribed to you or over the counter medicines unless recommended by your provider. Don't smoke. WHEN TO CALL THE OB PROVIDER Signs of infection, including fever and chills Increased bleeding: soaking more than one pad an hour or passing clots the size of an egg or larger. Wounds that become red, swollen or drain pus Vaginal discharge that smells foul New pain, swelling, or tenderness in your legs Pain that you can't control with the medications you've been given Pain, burning, urgency or frequency of urination, or persistent bleeding in the urine Cough, shortness of breath, or serious difficulty catching your breath Chest pain or pain in the upper right area of your belly Headache (very painful) or vision changes like blurry or double vision, seeing spots or 'auras' Swelling that is worse or weight gain of more than 3 pounds in 3 days Depression, suicidal thoughts, or feelings of harming someone else Breasts that are hot, red and accompanied by fever Any cracking or bleeding from the nipple or areola (the dark-colored area of the breast) You may have been given a magnet like this: If so, we encourage you to use it on your refrigerator as a reminder of when to call your OB provider. IIn case of an emergency, call 911 immediately. If you are Covid-19 positive or a Person Under Investigation (PUI) These could be signs that your COVID-19 symptoms are worsening and you may need emergency care: You are severely dizzy or lightheaded. You are confused or can't think clearly. Your face and lips have a blue color. You are unable to respond to others or are very hard to wake up. Prevention steps for People with confirmed or suspected COVID-19 (including persons under investigation) who do not need to be hospitalized and People with confirmed COVID-19 who were hospitalized and determined to be medically stable to go home Your healthcare provider and public health staff will evaluate whe ther you can be cared for at home. If it is determined that you do not need to be hospitalized and can be isolated at home, you will be monitored by staff from your local or state health department. You should follow the prevention steps below until a healthcare provider or local or state health department says you can return to your normal activities. Stay home except to get medical care People who are mildly ill with COVID-19 are able to isolate at home during their illness. You should restrict activities outside your home, except for getting medical care. Do not go to work, school, or public areas. Avoid using public transportation, ride-sharing, or taxis. Separate yourself from other people and animals in your home People: As much as possible, you should stay in a specific room and away from other people in your home. Also, you should use a separate bathroom, if available. Animals: You should restrict contact with pets and other animals while you are sick with COVID-19, just like you would around other people. Although there have not been reports of pets or other animals becoming sick with COVID-19, it is still recommended that people sick with COVID-19 limit contact with animals until more information is known about the virus. When possible, have another member of your household care for your animals while you are sick. If you are sick with COVID-19, avoid contact with your pet, including petting, snuggling, being kissed or licked, and sharing food. If you must care for your pet or be around animals while you are sick, wash your hands before and after you interact with pets and wear a facemask. Call ahead before visiting your provider If you have a medical appointment, call the healthcare provider and tell them that you have or may have COVID-19. This will help the healthcare provider's office take steps to keep other people from getting infected or exposed. Wear a facemask You should wear a facemask when you are around other people (e.g., sharing a room or vehicle) or pets and before you enter a healthcare provider's office. If you are not able to wear a facemask (for example, because it causes trouble breathing), then people who live with you should not stay in the same room with you, or they should wear a facemask if they enter your room. Cover your coughs and sneezes Cover your mouth and nose with a tissue when you cough or sneeze. Throw used tissues in a lined trash can. Immediately wash your hands with soap and water for at least 20 seconds or, if soap and water are not available, clean your hands with an alcohol-based hand motors assembler that contains at least 60% alcohol. Clean your hands often Wash your hands often with soap and water for at least 20 seconds, especially after blowing your nose, coughing, or sneezing; going to the bathroom; and before eating or preparing food. If soap and water are not readily available, use an alcohol-based hand motors assembler with at least 60% alcohol, covering all surfaces of your hands and rubbing them together until they feel dry. Soap and water are the best option if hands are visibly dirty. Avoid touching your eyes, nose, and mouth with unwashed hands. Avoid sharing personal household items You should not share dishes, drinking glasses, cups, eating utensils, towels, or bedding with other people or pets in your home. After using these items, they should be washed thoroughly with soap and water. Clean all high-touch surfaces everyday High touch surfaces include counters, tabletops, doorknobs, bathroom fixtures, toilets, phones, keyboards, tablets, and bedside tables. Also, clean any surfaces that may have blood, stool, or body fluids on them. Use a household cleaning spray or wipe, according to the label instructions. Labels contain instructions for safe and effective use of the cleaning product including precautions you should take when applying the product, such as wearing gloves and making sure you have good ventilation during use of the product. Monitor your symptoms Seek prompt medical attention if your illness is worsening (e.g., difficulty breathing). Before seeking care, call your healthcare provider and tell them that you have, or are being evaluated for, COVID-19. Put on a facemask before you enter the facility. These steps will help the healthcare provider's office to keep other people in the office or waiting room from getting infected or exposed. Ask your healthcare provider to call the local or state health department. Persons who are placed under active monitoring or facilitated self-monitoring should follow instructions provided by their local health department or occupational health professionals, as appropriate. When working with your local health department check their available hours. If you have a medical emergency and need to call 911, notify the dispatch personnel that you have, or are being evaluated for COVID-19. If possible, put on a facemask before emergency medical services arrive. Discontinuing home isolation Patients with confirmed COVID-19 should remain under home isolation precautions until the risk of secondary transmission to others is thought to be low. The decision to discontinue home isolation precautions should be made on a jquy-wz-chbf basis, in consultation with healthcare providers and state and local health departments. Information on COVID-19 for all patients Call your provider before your next appointment if you develop any of the following symptoms: fever, cough, fatigue, anorexia, shortness of breath, sputum production, and muscle pains. Headache, confusion, rhinorrhea, sore throat, hemoptysis, vomiting, and diarrhea have been reported but are less common. Some persons with COVID-19 have experienced gastrointestinal symptoms such as diarrhea and nausea prior to developing fever and lower respiratory tract signs and symptoms. Ways to Dows with Anxiety & Stress It is normal to feel anxious or worried about COVID-19. You might feel sad about canceling celebrations and staying away from family and friends. Keep in mind that most people do not get severely ill from COVID-19. It is important to have a plan in case you get sick to prevent spreading the disease to others including an Advanced Care Plan (communicating and documenting your desired health care plan with family and healthcare team). You can take care of yourself by: ? Taking a break from watching the news ? Take deep breaths, stretch or meditate ? Getting exercise, eating healthy foods, and drinking plenty of water ? Finding activities you can enjoy inside your home ? Staying in touch with your family and friends. Tell your partner, family, and friends how you are feeling. Advance Care Planning People with COVID-19 may have no symptoms, mild symptoms, such as fever, cough, and shortness of breath or they may have more severe illness, developing severe and fatal pneumonia. As a result, Advance Care Planning with attention to naming a health care decision maker (someone you trust to make healthcare decisions for you if you could not speak for yourself) and sharing other health care preferences is important BEFORE a possible health crisis. Please contact your Primary Care Provider to discuss Advance Care Planning. Learning About Coronavirus (COVID-19) Coronavirus (COVID-19): Overview What is coronavirus (COVID-19)? The coronavirus disease (COVID-19) is caused by a virus. It is an illness that was first found in [facility], in August 2019. It has since spread worldwide. The virus can cause fever, cough, and trouble breathing. In severe cases, it can cause pneumonia and make it hard to breathe without help. It can cause . Coronaviruses are a large group of viruses. They cause the common cold. They also cause more serious illnesses like [place] East respiratory syndrome (MERS) and severe acute respiratory syndrome (SARS). COVID-19 is caused by a novel coronavirus. That means it's a new type that has not been seen in people before. This virus spreads gejlyq-qj-dzyipd through droplets from coughing and sneezing. It can also spread when you are close to someone who is infected. It is always good practice to clean high touch surfaces frequently and avoid touching your mouth, nose and eyes until you have washed your hands if you touched these areas. What can you do to protect yourself from coronavirus (COVID-19)? The best way to protect yourself from getting sick is to: Wear a face mask. Avoid areas where there is an outbreak. Avoid contact with people who may be infected. Wash your hands often with soap or alcohol-based hand sanitizers. Avoid crowds and try to stay at least 6 feet away from other people. Wash your hands often, especially after you cough or sneeze. Use soap and water, and scrub for at least 20 seconds. If soap and water aren't available, use an alcohol-based hand motors assembler. Call 911 anytime you think you may need emergency care. For example, call if: You have severe trouble breathing. (You can't talk at all.) You have constant chest pain or pressure. You are severely dizzy or lightheaded. You are confused or can't think clearly. Your face and lips have a blue color. You pass out (lose consciousness) or are very hard to wake up. Call your OB Provider now if you develop symptoms such as: Shortness of breath. Fever. Cough. If you need to get care, call ahead to the provider's office for instructions before you go. Make sure you wear a face mask, to prevent exposing other people to the virus. Where can you get the latest information? The following health organizations are tracking and studying this virus. Their websites contain the most up-to-date information. You'll also learn what to do if you think you may have been exposed to the virus. [place]. Centers for Disease Control and Prevention (CDC): The CDC provides updated news about the disease and travel advice. The website also tells you how to prevent the spread of infection. www.cdc.gov World Health Organization (WHO): WHO offers information about the virus outbreaks. WHO also has travel advice. www.who.int Current as of: December 04, 2019 Content Version: 12. [employer]. Care instructions adapted under license by your healthcare professional. If you have questions about a medical condition or this instruction, always ask your healthcare professional. [employer] disclaims any warranty or liability for your use of this information. General Recommendations for Routine Cleaning and Disinfection of Households Community members can practice routine cleaning of frequently touched surfaces (for example: tables, doorknobs, light switches, handles, desks, toilets, faucets, sinks) with household environmental services specialist and EPA-registered disinfectants that are appropriate for the surface, following label instructions. Labels contain instructions for safe and effective use of the cleaning product including precautions you should take when applying the product, such as wearing gloves and making sure you have good ventilation during use of the product. These guidelines are focused on household settings and are meant for the general public. Cleaning refers to the removal of germs, dirt, and impurities from surfaces. Cleaning does not kill germs, but by removing them, it lowers their numbers and the risk of spreading infection. Disinfecting refers to using chemicals to kill germs on surfaces. This process does not necessarily clean dirty surfaces or remove germs, but by killing germs on a surface after cleaning, it can further lower the risk of spreading infection. General Recommendations for Cleaning and Disinfection of Households with People Isolated in Home Care - Confirmed or suspected COVID 19 Household members should educate themselves about COVID-19 symptoms and preventing the spread of COVID-19 in homes. Clean and disinfect high-touch surfaces daily in household common areas (e.g. tables, hard-backed chairs, doorknobs, light switches, remotes, handles, desks, toilets, sinks) o In the bedroom/bathroom dedicated for an ill person: consider reducing cleaning frequency to as-needed (e.g., soiled items and surfaces) to avoid unnecessary contact with the ill person. - As much as possible, an ill person should stay in a specific room and away from other people in their home. - The caregiver can provide personal cleaning supplies for an ill person's room and bathroom, unless the room is occupied by child or another person for whom such supplies would not be appropriate. These supplies include tissues, paper towels, environmental services specialist and EPA-registered disinfectants (see list link at CDC website). - If a separate bathroom is not available, the bathroom should be cleaned and disinfected after each use by an ill person. If this is not possible, the caregiver should wait as long as practical after use by an ill person to clean and disinfect the high-touch surfaces. How to clean and disinfect: Hard Surfaces Wear disposable gloves when cleaning and disinfecting surfaces. Gloves should be discarded after each cleaning. If reusable gloves are used, those gloves should be dedicated for cleaning and disinfection of surfaces for COVID-19 and should not be used for other purposes. Consult the telegraphic typewriter operator's instructions for cleaning and disinfection products used. Clean hands immediately after gloves are removed. If surfaces are dirty, they should be cleaned using a detergent or soap and water prior to disinfection. For disinfection, diluted household bleach solutions, alcohol solutions with at least 70% alcohol, and most common EPA-registered household disinfectants should be effective. o Diluted household bleach solutions can be used if appropriate for the surface. Follow telegraphic typewriter operator's instructions for application and proper ventilation. Check to ensure the product is not past its expiration date. Never mix household bleach with ammonia or any other cleanser. Unexpired household bleach will be effective against coronaviruses when properly diluted. - Prepare a bleach solution by mixing: - 5 tablespoons (1/3rd cup) bleach per gallon of water or - 4 teaspoons bleach per quart of water o Products with EPA-approved emerging viral pathogens [facility] iconexternal icon are expected to be effective against COVID-19 based on data for harder to kill viruses. Follow the telegraphic typewriter operator's instructions for all cleaning and disinfection products (e.g., concentration, application method and contact time, etc.). Soft (porous) surfaces such as carpeted floor, rugs, and drapes Remove visible contamination if present and clean with appropriate environmental services specialist indicated for use on these surfaces. After cleaning: Launder items as appropriate in accordance with the telegraphic typewriter operator's instructions. If possible, launder items using the warmest appropriate water setting for the items and dry items completely, or Clothing, towels, linens and other items that go in the laundry Wear disposable gloves when handling dirty laundry from an ill person and then discard after each use. If using reusable gloves, those gloves should be dedicated for cleaning and disinfection of surfaces for COVID-19 and should not be used for other household purposes. Clean hands immediately after gloves are removed. o If no gloves are used when handling dirty laundry, be sure to wash hands afterwards. o If possible, do not shake dirty laundry. This will minimize the possibility of dispersing virus through the air. o Launder items as appropriate in accordance with the telegraphic typewriter operator's instructions. If possible, launder items using the warmest appropriate water setting for the items and dry items completely. Dirty laundry from an ill person can be washed with other people's items. o Clean and disinfect clothes hampers according to guidance above for surfaces. If possible, consider placing a paper bag press operator that is either disposable (can be thrown away) or can be laundered. CDC has a list of EPA approved cleaning products on their website - https://www.cdc.gov/coronavirus/ 2019-ncov/community/home/cleanin g-disinfection.html https://www.americanHOTPOTATO MEDIAistry.co m/Nwwcp-Wsmpjahlftl-Wwjxtujv-Pro ducts-List.pdf [employer] with delivery and apple picker services: [facility]: Free apple picker at locations Delivery is $12.95 a month Website - [employer] [place]: Public Welfare Worker $2.95 (1st order is free) Delivery is $14.95 Website - [employer] [place]: clerical support specialist is free Delivery is $5.95 Website [employer]: clerical support specialist is $4.95 Delivery is $9.95 [employer]: clerical support specialist is $4.95 Delivery is $9.95 Website [employer]: Can be ordered for delivery and apple picker with [employer] Website - [employer]: Free deliver for first 3 orders of $35 or more Website [employer] Will deliver from [facility], [facility], [employer], and [employer]. Annual membership is $99 Monthly membership is $14 documented in this encounter [facility] Work Phone: documented in this encounter [facility] Work Phone: Evaluation note* Diagnosis Hx successful (vaginal after ), currently - Primary Previous delivery, unspecified as to episode of care or not applicable Short interval between pregnancies affecting , antepartum History of delivery, currently with history of pre-term labor with care elsewhere, antepartum Dysuria Uterine size-date discrepancy, third trimester [facility] Diagnosis with care elsewhere, antepartum- Primary 32 weeks gestation of state, incidental Hx successful (vaginal after ), currently Previous delivery, unspecified as to episode of care or not applicable Short interval between pregnancies affecting , antepartum History of delivery, currently with history of pre-term labor Uterine size-date discrepancy, third trimester Encounter for anatomic survey [facility] Diagnosis 32 weeks gestation of - Primary state, incidental with care elsewhere, antepartum [facility]* Diagnosis with care elsewhere, antepartum- Primary Hx successful (vaginal after ), currently Previous delivery, unspecified as to episode of care or not applicable Short interval between pregnancies affecting , antepartum History of delivery, currently with history of pre-term labor 33 weeks gestation of state, incidental Need for influenza vaccination Need for prophylactic vaccination and inoculation against influenza [facility]* Diagnosis with care elsewhere, antepartum- Primary 35 weeks gestation of state, incidental Supervision of other high risk pregnancies, third trimester [facility]* Diagnosis with care elsewhere, antepartum- Primary 37 weeks gestation of state, incidental Short interval between pregnancies affecting , antepartum Hx successful (vaginal after ), currently Previous delivery, unspecified as to episode of care or not applicable [facility] Diagnostic Procedure Only (Routine) - Pending Review Specialty Diagnoses / Procedures Referred By Harpal t Referred To Contact [facility] Diagnoses Hx successful (vaginal after ), currently Short interval between pregnancies affecting , antepartum History of delivery, currently with care elsewhere, antepartum Uterine size-date discrepancy, third trimester Procedures OBSTETRIC ULTRASOUND WHI US PREG UTERUS AFTER 1ST TRIMEST GESTATION Liam Mathews MD [address] [place] [address] [facility] [address] [place] [address] Referral ID Status Reason Start Date Expiration Date Visits Requested Visits Authorized [id number] Pending Review Auto-Generat ed Referral 06/02/2023 06/01/2024 1 1 [facility] Summary Purpose Family History No Family History Records FoundNo Family History Records FoundNo Family History Records Found Advance Directives No Advanced Directives Records FoundLatest Code Status on File Code Status Date Activated Date Inactivated Comments Full Code 05/02/2021 4:10 PM Full Code 05/02/2021 8:45 AM 05/02/2021 4:10 PM Full Code 04/30/2021 11:16 PM 05/02/2021 8:45 AM Health Concerns Problem Noted Date Diagnosed Date [facility] - [facility] 06/02/2023 [place] - [place] 06/02/2023 Problem Noted Date Diagnosed Date [facility] - [facility] 06/02/2023 [place] - [place] 06/02/2023 Problem Noted Date Diagnosed Date [facility] - [facility] 06/02/2023 [place] - [place] 06/02/2023 Problem Noted Date Diagnosed Date [facility] - [facility] 06/02/2023 [place] - [place] 06/02/2023 Problem Noted Date Diagnosed Date [facility] - [facility] 06/02/2023 [place] - [place] 06/02/2023 Problem Noted Date Diagnosed Date [facility] - [facility] 06/02/2023 Education - [place] 06/02/2023 Problem Noted Date Diagnosed Date [facility] - [facility] 06/02/2023 Education - [place] 06/02/2023 Problem Noted Date Diagnosed Date [facility] - [place] 06/02/2023 [place] - [place] 06/02/2023 Additional Source Comments INFORMATION SOURCE (unrecogn ized section and content) DATE CREATED AUTHOR AUTHOR'S ORGANIZ ATION 05/14/2021 [facility] DATE CREATED AUTHOR AUTHOR'S ORGANIZ ATION 09/18/2023 [facility] Reason for Visit (unrecogniz ed section and content) Reason Comments Opened In Error Reason Comments Initial OB Visit Transfer from [facility] Reason Comments US Reason Onset Date Comments Care 06/19/2023 Reason Comments Patient Question Reason Onset Date Comments Care 06/27/2023 Immunizations 06/27/2023 Flu vaccination Reason Onset Date Comments Care 07/11/2023 Reason Comments Progress Worker - Other PRAF Reason Onset Date Comments Care 07/20/2023 Reason Comments Ob Delivery Note Ordered Prescriptions (unrec ognized section and content) Scheduled Active and Recently Administ ered Medications (unrecognized section and content) Continuous Medication Order 05/02/2021 05/03/2021 05/04/2021 lactated ringers infusion (CANCELED) IntraVENous, at 100 mL/hr, CONTINUOUS, Starting on 05/02/21 at 0645 0645 (New Bag - Provider: Shruthi Jerez, RYAN) lactated ringers infusion (CANCELED) IntraVENous, at 125 mL/hr, CONTINUOUS, Starting on 05/02/21 at 0915, Labor and Delivery 0904 (New Bag - Provider: Jyothi Raymond RN)1236 (New Bag - Provider: Jyothi Raymond, RYAN) oxytocin (PITOCIN) 10 unit bolus from the bag 500 mL (30 Units), IntraVENous, Administer over 75 Minutes, TITRATED, Starting on 05/02/21 at 1400, For Immediate Post Use Only. Give after delivery of placenta. Bag 1 of 2: Bolus for bag to infuse at 999 ml/hour for 15 minutes (15 units in 250cc). After initial bolus then decrease rate to 250cc/hr for 1 hour. Then discontinue., Multiphase Phase of Care 1244 (New Bag - Provider: Jyothi Raymond, RYAN)1359 (Due: Stopped - Provider: Jyothi Raymond RN) PRN Medication Order 05/02/2021 05/03/2021 05/04/2021 benzocaine-benzethonium (DERMOPLAST) 20-0.2 % spray Topical, PRN, Pain, Starting on 05/02/21 at 1610, Apply to perineal area. Patient is capable and may self administer at bedside., docusate sodium (COLACE) capsule 100 mg 100 mg, Oral, 2 TIMES DAILY PRN, Constipation, Starting on 05/02/21 at 1610, Do not crush or break., lactated ringers bolus (CANCELED) 1,000 mL, IntraVENous, at 500 mL/hr, Administer over 2 Hours, PRN, Give prior to epidural placement. May be repeated if a second epidural/spinal procedure is performed., Starting on 05/02/21 at 0843, Labor and Delivery 0817 (New Bag - Provider: Jyothi Raymond RN)1017 (Due: Stopped - Provider: Jyothi Raymond RN) lansinoh lanolin ointment Topical, PRN, Dry Skin, nipple discomfort, Starting on 05/02/21 at 1610, ondansetron (ZOFRAN) injection 4 mg 4 mg, IntraVENous, EVERY 6 HOURS PRN, Nausea, Starting on 05/02/21 at 1610, oxytocin (PITOCIN) 30 units in 500 mL infusion () 125 catracho-units/min (125 mL/hr), IntraVENous, at 125 mL/hr, CONTINUOUS PRN, Bleeding, Starting on 05/02/21 at 1339, For 4 hours, For Immediate Post Use Only. Give after delivery of placenta and initial 30 unit bolus. Bag 2 of 2: 125cc/hr (125 mu/min) for an additional infusion of 500cc (30 units)., Multiphase Phase of Care 1400 (New Bag - Provider: Jyothi Raymond RN) simethicone (MYLICON) chewable tablet 80 mg 80 mg, Oral, EVERY 6 HOURS PRN, Cramping, Flatulence, Starting on 05/02/21 at 1610, sodium chloride flush 0.9 % injection 10 mL (CANCELED) 10 mL, IntraVENous, PRN, Line Care, After every IV line use, Starting on Mon04/30/21 at 2314 0442 (Given - Provider: Shruthi Jerez RN) witch hue-glycerin (TUCKS) pad Topical, PRN, Hemorrhoids, For perineal pain or discomfort, Starting on Mon05/02/21 at 1610, Apply to perineal area. Patient is capable and may self administer at bedside., Source Comments (unrecognize d section and content) In the event this informatio n is protected by the Federal Confidentiality of Alcohol and Drug Abuse Patient Records regulations: The Federal rules restrict any use of the information to criminally investigate or prosecute any alcohol or drug abuse patient.[facility] the event this information is protected by the Federal Confidentiality of Alcohol and Drug Abuse Patient Records regulations: The Federal rules restrict any use of the information to criminally investigate or prosecute any alcohol or drug abuse patient.[facility] the event this information is protected by the Federal Confidentiality of Alcohol and Drug Abuse Patient Records regulations: The Federal rules restrict any use of the information to criminally investigate or prosecute any alcohol or drug abuse patient.[facility] the event this information is protected by the Federal Confidentiality of Alcohol and Drug Abuse Patient Records regulations: The Federal rules restrict any use of the information to criminally investigate or prosecute any alcohol or drug abuse patient.[facility] the event this information is protected by the Federal Confidentiality of Alcohol and Drug Abuse Patient Records regulations: The Federal rules restrict any use of the information to criminally investigate or prosecute any alcohol or drug abuse patient.[facility] the event this information is protected by the Federal Confidentiality of Alcohol and Drug Abuse Patient Records regulations: The Federal rules restrict any use of the information to criminally investigate or prosecute any alcohol or drug abuse patient.[facility] the event this information is protected by the Federal Confidentiality of Alcohol and Drug Abuse Patient Records regulations: The Federal rules restrict any use of the information to criminally investigate or prosecute any alcohol or drug abuse patient.[facility] the event this information is protected by the Federal Confidentiality of Alcohol and Drug Abuse Patient Records regulations: The Federal rules restrict any use of the information to criminally investigate or prosecute any alcohol or drug abuse patient.[facility] the event this information is protected by the Federal Confidentiality of Alcohol and Drug Abuse Patient Records regulations: The Federal rules restrict any use of the information to criminally investigate or prosecute any alcohol or drug abuse patient.[facility] the event this information is protected by the Federal Confidentiality of Alcohol and Drug Abuse Patient Records regulations: The Federal rules restrict any use of the information to criminally investigate or prosecute any alcohol or drug abuse patient.[facility] FOR RECORDS PERTAINING TO PATIENTS WHO ARE OR HAVE BEEN ENROLLED IN A CHEMICAL DEPENDENCY/SUBSTANCEABUSE PROGRAM, SOME INFORMATION MAY BE OMITTED. This clinical summary was aggregated from multiple sources. Caution should be exercised in using it in the provision of clinical care. This summary normalizes information from multiple sources, and as a consequence, information in this document may materially change the coding, format and clinical context of patient data. In addition, data may be omitted in some cases. CLINICAL DECISIONS SHOULD BE BASED ON THE PRIMARY CLINICAL RECORDS. [facility]. provides no warranty or guarantee of the accuracy or completeness of information in this document.
[2023-09-21] MEDS: Lactated Ringers 1,000 ML 15 ML IV ×2 (13:20→15:08)
[2023-09-21 13:22] LABS: Hematocrit 34.5 % (37-47); Hemoglobin 11.1 g/dL (12.0-15.0); Mean Corp Hgb Conc 32.2 g/dL (32-36); Mean Corpuscular Hgb 26.9 pg (27.0-32.0); Mean Corpuscular Volume 83.7 fL (81-99); Mean Platelet Vol. 9.9 fl (6.2-12.0); Platelet Count 341 K/mm3 (150-450); RBC Distribution Width CV 13.6 % (11.6-14.6); RBC Distribution Width SD 41.8 fl (35.1-43.9); Red Blood Count 4.12 M/mm3 (4.2-5.4); White Blood Count 7.7 K/mm3 (4.4-11.0)
[2023-09-21 13:48] LABS: Internal QC Validated? YES +Cl - CLEAR BKGD; Pregnancy, Urine Negative Negative; Record Kit Lot#,Urine Preg 718086
--- NOTE | 2023-09-21 14:15 | FALS_PTH ---
PATHOLOGY RESULTS PATIENT: JYOTHI ALVES LOC: [facility] U#:[id number] AGE/SX: 32/F ROOM: RE09/21/[address]: Dr. Melody Mathews DO : 1990 BED: DIS: 09/21/2023 SPEC #: [id number] RECD: 09/22/23 07:34 STATUS: NIKKY REFranck #: [id number] SOCORRO: 09/21/23 14:[address]: Melody Mathews DEPT: SURGICAL PATHOLOGY RECD BY: Yenny Cortes ENTERED: 09/22/23 10:07 SP TYPE: FALL TUBES OTHR DR: Melody Primary Care Phys Tissues: Fallopian tube Procedures: Surgery Specimen Level IV HEADER OPERATION: Laparoscopic salpingectomy PRE-OP DIAGNOSIS: Elective sterilization TISSUE SUBMITTED: Bilateral fallopian tubes MICROSCOPIC DIAGNOSIS Right and left fallopian tubes, bilateral salpingectomies: Complete cross-sections of two fallopian tubes with benign paratubal cysts. AM:roya 09/25/2023 MICROSCOPIC DESCRIPTION Slides are reviewed. GROSS DESCRIPTION Received in fixative is one container labeled with the patient's name and designated bilateral fallopian tubes. The specimen consists of bilateral fallopian tubes including fimbrial ends measuring 6.5 cm in length and 0.5 cm in diameter and 7.5 cm in length and 0.5 cm in diameter. The fallopian tubes are not identified as right or left. One of the fallopian tubes show a paratubal cyst measuring 1.0 cm in greatest dimension. The second fallopian tube also shows a paratubal cyst measuring 0.8 cm in greatest dimension. Sections reveal unremarkable cut surfaces. Traffic Ii Manager sections are submitted in two cassettes with each cassette containing one fallopian tube and one adjacent paratubal cyst. / SJ:roya 09/22/2023 TC:5 [facility]: [id number] x2
[2023-09-21] MEDS: Bupivacaine Mpf 0.5% 30 ML VIAL (14:44)
--- NOTE | 2023-09-21 14:58 | DCINST_ITS ---
Discharge Instructions Diet Discharge Diet: No restrictions Activity Discharge Activity: May Drive (after 24 hours and once you no longer need pain medication) and May Shower (once you are more than 24 hours out from surgery) May resume sexual activity in: 2 weeks Ice area for (Minutes): 15 Weight Bearing Status: Weight bearing as tolerated Lifting Restrictions: nothing greater than 10-15 lbs for first 1 week Dressing / Incision Call your doctor if your incision/area has: Continuous Slow Oozing, Sudden Increased Bleeding, Increased Pain/ Swelling, Increased Redness, Foul Smelling Discharge and Swelling at the incision site Call your doctor if you observe: Fever of 101 or Higher, Coldness, Increased Pain, Numbness or Tingling, Change in Color, Inability to urinate, Inability to have a bowel movement, Using more than 1 pad per hour, Shortness of breath, Dizziness, Fainting spells, Swelling in the ankles, Chest pain, Increased palpitations (irregular heartbeat), Calf discomfort and Uncontrolled pain Suture Line Care: Avoid Pulling/Pushing and Avoid Pinching/Bending Cleanse incision/area with: Soap & Water Follow Up Care Please Follow Up With: Melody Mathews DO When: 1-2 weeks Test Results: Test results from this visit will be discussed in further detail at your follow- up appointment, if applicable. Discharge Plan Admission Primary Reason for Your Visit: surgery Attending Provider: Melody Mathews Primary Care Provider: Melody Escobar Primary Instructions Patient Instructions: Lap Fallopian Tube Ligation Dc Discharge Orders/Prescriptions Prescriptions: New oxycodone-acetaminophen [Percocet] 5-325 mg tablet 1 tab PO Q6H PRN (Reason: pain) 7 Days Qty: 3 0RF ibuprofen 600 mg tablet 600 mg PO Q6H PRN (Reason: pain) Qty: 30 0RF Continued Fa 1 tablet OTHER DAILY Referrals / Follow Up: Care Physician,Melody Primary [Primary Care Provider] - Disposition Disposition (needs filled in before D/C Order can be placed): Home, Self Care
--- NOTE | 2023-09-21 15:06 | OP.PCM_ITS ---
Problems Associated Problem List Diagnoses (1) Request for sterilization: Report of Operation Date of Procedure: 09/21/23 Pre-Operative Diagnosis: Request for sterilization Post-Operative Diagnosis: As above Surgery/Procedure Performed:: Laparoscopic bilateral salpingectomy Description of Surgical Findings:: Normal appearing pelvis. Normal appearing uterus and bilateral adnexa Surgeon: Melody Mathews insole doubler: Maribel guerin Type of Anesthesia: General Special Medications: None Specimen's removed: Bilateral fallopian tubes Drains: None Estimated Blood Loss (mL): < 50 Fluids Replaced: 900 mL Description of Procedure: Patient was taken to the operating room where general anesthesia was induced. She was prepped and draped in the dorsal lithotomy position using yellow fin stirrups. A weighted speculum was placed in the vagina to expose the cervix. The anterior lip of the cervix was grasped with a single-tooth tenaculum. A uterine manipulator was placed. The single-tooth tenaculum and weighted speculum were removed from the vagina. Gloves were changed and attention was turned to the abdominal portion of the procedure. Local was infiltrated at all port sites. Infraumbilically an incision was made to accommodate a 5 mm port, which was placed under direct visualization using laparoscope. Once confirmed intraperitoneal, CO2 insufflation was initiated. No injury was noted upon entry. The patient was placed in Trendelenburg position. The uterus was upheld from below and was noted to be normal-appearing with normal-appearing adnexa. A left lateral 5 mm port was placed under direct visualization. A right lateral 5 mm port was placed under direct visualization. The right fallopian tube was followed out to the fimbriated end and elevated out of the pelvis. The LigaSure device was used to serially clamp, cauterize, and transect along the mesosalpinx hugging adjacent to the fallopian tube. Once at the level of the cornua the fallopian tube was transected and removed. The same was performed on the left side. The left fallopian tube was elevated out of the pelvis and followed out to the fimbriated end. The LigaSure device was used to serially clamp, cauterize, and transect along the mesosalpinx hugging adjacent to the fallopian tube until reaching level of the cornua. Once at the level of the cornua the fallopian tube was transected. The bilateral fallopian tubes were removed from the pelvis and sent to pathology for review. Hemostasis was noted. The ports were removed and hemostatic. The abdomen was exsufflated. The port sites were closed with 4-0 Monocryl and glue. The uterine manipulator was removed from below and a vaginal sweep was performed. Instrument, sponge, sharp counts were correct. The patient was taken to recovery room in good stable condition. Grafts/Implants Used: None Procedure Start Time: 14:12 Procedure Stop Time: 14:50 Complications None Admit VTE Documentation VTE Present on Admission: No VTE Mechan Device Prophylaxis: SCD's
== END 2023-09-21 16:42 | disposition home or self-care (01) ==
LOC: SDC 12:42 → AC 12:43
PROVIDERS: Anesthesiology; Referring Provider Obstetrics & Gynecology; Visit Provider Obstetrics & Gynecology
PROC: (CPT 58661; principal; 2023-09-21 14:00)
DX: Z30.2 Encounter for sterilization (principal); N83.8 Other noninflammatory disorders of ovary, fallopian tube and broad ligament; Z87.891 Personal history of nicotine dependence
CPT/HCPCS: 58661; 00840; 88302; 81025; 85027; 86850; 86900; 86901; 88305; J7120; J2405